=== PATIENT | female | born 1970 | race Caucasian/White ===

== ENCOUNTER 2019-06-29 09:51 | Outpatient (CLI) | payer OTHER, SELFPAY ==
--- NOTE | ~2019-06-29 | CT_ITS ---
EXAMINATION: CT abdomen pelvis wo/w con DATE: 06/29/2019 10:31 INDICATION: Microscopic hematuria. Left flank pain. TECHNIQUE: Computed tomography (CT) of the abdomen and pelvis was performed without intravenous contr ast. The dose-length product was 2065.15 mGy-cm. Automated exposure control and iterative reconstruct ion technique were employed. COMPARISON: No prior studies for comparison. FINDINGS: Lung bases are unremarkable. There is a laparoscopic adjustable gastric band. No significan t pleural or pericardial effusion. No significant vascular abnormality. No lymphadenopathy. No renal/ureteral stones or hydronephrosis. Ureters are normal in course and caliber. No focal renal mass identified. The liver, spleen, pancreas, right adrenal gland are unremarkable. Left adrenal gland not identified, possibly surgically absent. Gallbladder is present. No free air or free fluid. Bowel pattern is nono bstructive. No lymphadenopathy. No acute osseous abnormality. IMPRESSION: 1. No acute abnormality. No findings to account for hematuria. Reviewed, dictated and finalized at location A.
[2019-06-29 10:07] LABS: Estimated Glomerular Filt Rate > 60
== END 2019-06-29 09:52 ==
PROVIDERS: PCP Physician Assistant; Visit Provider Physician Assistant
DX: R31.21 Asymptomatic microscopic hematuria (principal)
CPT/HCPCS: 36415; 74178; Q9967

== ENCOUNTER 2020-08-31 16:38 | Outpatient (CLI) | payer OTHER, SELFPAY ==
--- NOTE | ~2020-08-31 | XR_ITS ---
EXAMINATION: XR chest 2V EXAM DATE: 08/31/2020 16:54 INDICATION: Shortness of breath for one month with exertion. Hypertension. Flank pain. TECHNIQUE: Frontal and lateral projections of the chest obtained and reviewed. Comparison is made to prior examination from 04/17/2014. FINDINGS: The lungs are clear. There are no pleural effusions. The cardiomediastinal silhouette is within normal limits. There is no pneumothorax suspected. The bones and soft tissues are unremarkab le. Gastric banding device. IMPRESSION: Unremarkable chest x-ray exam. Reviewed, dictated and finalized at location A.
== END 2020-08-31 16:39 ==
PROVIDERS: Visit Provider Internal Medicine Cardiovascular Disease
DX: R10.9 Unspecified abdominal pain (principal); I10 Essential (primary) hypertension; E66.9 Obesity, unspecified; E03.9 Hypothyroidism, unspecified; D64.9 Anemia, unspecified; R06.83 Snoring; C73 Malignant neoplasm of thyroid gland; R20.2 Paresthesia of skin; Z82.49 Family history of ischemic heart disease and other diseases of the circulatory system
CPT/HCPCS: 71046

== ENCOUNTER 2020-09-28 09:52 | Outpatient (CLI) | payer OTHER, SELFPAY ==
--- NOTE | 2020-09-28 11:18 | ECG_ITS ---
Measurements Intervals [place] Rate: 70 P: 18 [place]: 153 QRS: 11 QRSD: 90 T: 18 QT: 370 QTc: 402 Interpretive Statements SINUS RHYTHM BASELINE ARTIFACT- I, II, AVR NORMAL ECG Electronically Signed On 09-28-2020 12:32:02 CDT by Romulo Chen D.O.
[2020-09-28 12:23] LABS: Alanine Aminotransferase 13 U/L (4-35); Albumin Level 4.1 g/dL (3.5-5.1); Alkaline Phosphatase 68 U/L (38-126); Anion Gap 7 mmol/L (8-16); Aspartate Amino Transferase 21 U/L (14-36); Bilirubin,Total 0.4 mg/dL (0.2-1.3); Blood Urea Nitrogen 15 mg/dL (7-17); Calcium 9.8 mg/dL (8.4-10.2); Carbon Dioxide 29 mmol/L (22-30); Chloride 105 mmol/L (98-107); Estimated Glomerular Filt Rate > 60; Glucose 85 mg/dL (65-105); Potassium 3.9 mmol/L (3.4-5.0); Sodium 141 mmol/L (137-145)
== END 2020-09-28 09:53 | disposition home or self-care (01) ==
LOC: ANHSURGERY 09:53
PROVIDERS: Obstetrics & Gynecology; PCP Physician Assistant; Visit Provider Urology
DX: N39.3 Stress incontinence (female) (male) (principal); I10 Essential (primary) hypertension; N92.0 Excessive and frequent menstruation with regular cycle; Z01.818 Encounter for other preprocedural examination
CPT/HCPCS: 36415; 80053; 86850; 86900; 86901; 87086; 93005

== ENCOUNTER → 2020-10-05 04:37 | Outpatient (CLI) | payer OTHER, SELFPAY ==
[2020-10-05 18:47] LABS: SARS-CoV-2 RNA PCR Negative
== END ==
PROVIDERS: Visit Provider Urology
DX: Z01.812 Encounter for preprocedural laboratory examination (principal); Z20.822 Contact with and (suspected) exposure to COVID-19
CPT/HCPCS: C9803; U0003; U0005

== ENCOUNTER 2020-10-08 00:53 | Day surgery (SDC) | payer OTHER, SELFPAY ==
[2020-09-28 10:17] VITALS: BP 137/63; PULSE 78; RESP 16; TEMP 37; O2SAT 97
[2020-09-28 10:58] VITALS: BMI 39.1
--- NOTE | 2020-10-05 08:38 | P.HP_ITS ---
H&P: HPI History of Present Illness Date/Time: 10/05/20 08:38 a 49-year-old female who like her stress incontinence corrected concomitantly with a hysterectomy for dysfunctional uterine bleeding Chief Complaint: stress incontinence Review of Systems Review of Systems: All systems reviewed & are unremarkable except as noted in HPI and below PMFSH Past Medical History Medical History (Updated 10/05/20 @ 08:39 by Malcolm Yancey MD) Abnormal uterine bleeding Gastroesophageal reflux disease HTN (hypertension) Hypercholesterolemia Obesity Thyroid cancer Family History Family History (Updated 12/15/13 @ 07:13 by DOCTOR UNKNOWN) Father Hypertension Other Diabetes mellitus Family history of malignant neoplasm of male breast Social History Social History Smoking packs per day: 1 Smoking cigarettes per day: 20.0 Years smoked: 15 Smoking pack-years: 15.00 Smoking status: Former smoker Tobacco type: cigarettes Smoking end date: 10/19/99 Alcohol intake: current Substance use: never Additional living arrangements comments: [facility] Spiritual care concerns: No Meds Home Medications and Allergies Home Medications Medication Instructions Recorded Confirmed Type atorvastatin 40 mg PO HS 03/30/19 09/28/20 History phentermine 30 mg PO DAILY 03/30/19 09/28/20 History calcium and magnesium carbonat 1 tablet PO DAILY 09/28/20 09/28/20 History cholecalciferol (vitamin D3) 125 mcg PO DAILY 09/28/20 09/28/20 History citalopram 20 mg PO QACLUNCH 09/28/20 09/28/20 History cyanocobalamin (vitamin B-12) 1,000 mcg PO DAILY 09/28/20 09/28/20 History levothyroxine 25 mcg PO DAILY 09/28/20 09/28/20 History levothyroxine 200 mcg PO QAM 09/28/20 09/28/20 History lejbhhrhaiqe-Hp-uuae-minerals 1 tablet PO DAILY 09/28/20 09/28/20 History [Multiple Vitamin, Womens] omeprazole 40 mg PO QACLUNCH 09/28/20 09/28/20 History triamterene-hydrochlorothiazid 1 cap PO QACLUNCH 09/28/20 09/28/20 History Allergies Allergy/AdvReac Type Severity Reaction Status Date / Time No Known Allergies Allergy Unverified 09/28/20 10:03 Exam Const: General: cooperative and healthy appearing HENMT: Head: normal to inspection Face and sinus: normal facial exam Eyes: General: appearance normal, both eyes and all related structures Resp: Effort & Inspection: normal respiratory effort and able to speak in c omplete sentences Back/Spine/Pelvis: Back: no CVA tenderness Skin: General skin exam: normal color Assessment and Plan Assessment and plan (1) IAIN (stress urinary incontinence, female): Code(s): N39.3 - Stress incontinence (female) (male) Status: Acute Assessment and Plan: urethral sling
[2020-10-08] VITALS (8 sets, daily range): BP systolic 119–151; BP diastolic 67–87; PULSE 71–110; RESP 15–20; TEMP 36.1–37; O2SAT 93–100
--- NOTE | ~2020-10-08 | XR_ITS ---
EXAMINATION: XR retrograde pyelo w/stent BI DATE: 10/08/2020 16:59 INDICATION: Ureteral injury. TECHNIQUE: 6 intraoperative fluoroscopic views of the abdomen and pelvis were obtained. I was not pre sent. Fluoroscopy exposure time was 49 seconds. COMPARISON: CT abdomen and pelvis 06/29/2019 FINDINGS: Retrograde pyelograms demonstrated extravasation of contrast from the distal left ureter. U reteral stents are noted. IMPRESSION: 1. Contrast extravasation from the distal left ureter. 2. Bilateral internal ureteral stent placement. Reviewed, dictated and finalized at location A.
--- NOTE | 2020-10-08 07:17 | WPDHPUPDATE1 ---
History and Physical Update Update Date/Time: 10/08/20 07:17 History and Physical has been reviewed, including an updated exam of the patient. There are NO changes in the patient's condition. Risks, benefits, and alternatives have been discussed and questions answered. Patient agrees to proceed with procedure.
[2020-10-08] MEDS: ACETAMINOPHEN 500 MG TABLET 1000 MG PO (11:12)
[2020-10-08] MEDS: KETOROLAC 15 MG/ML VIAL (*BKC) IV PUSH (11:12)
[2020-10-08] MEDS: LACTATED RINGERS 1,000 ML 30 ML IV CONT ×3 (11:27→19:04)
--- NOTE | 2020-10-08 11:57 | WPDANESEPPF ---
Anes - Initial Pre Proc Eval Procedure: Operation Date: 10/08/20 12:30 Proposed Procedures p Urethral Sling - Malcolm Yancey MD s Laparoscopic Assisted Total Vaginal Hysterectomy With Bilateral Salpingo Oophorectomy - Jessica Sahni MD Date/Time: 10/08/20 11:57 Surgeon: Malcolm Yancey MD Pre Op Diagnosis: stress incontinence, menorrhagia Patient Data Age: 50 Gender: F Height: 1.65 m Weight: 107.6 kg Last Vital Signs Temp 97.7 F 10/08/20 11:35 Pulse 71 10/08/20 11:35 Resp 18 10/08/20 11:35 BP 141/74 H 10/08/20 11:35 Pulse Ox 98 10/08/20 11:35 Allergies Allergy/AdvReac Type Severity Reaction Status Date / Time No Known Allergies Allergy Unverified 09/28/20 10:03 Home Medications Medication Instructions Recorded Confirmed Type atorvastatin 40 mg PO HS 03/30/19 10/08/20 History phentermine 30 mg PO DAILY 03/30/19 10/08/20 History calcium and magnesium carbonat 1 tablet PO DAILY 09/28/20 10/08/20 History cholecalciferol (vitamin D3) 125 mcg PO DAILY 09/28/20 10/08/20 History citalopram 20 mg PO QACLUNCH 09/28/20 10/08/20 History cyanocobalamin (vitamin B-12) 1,000 mcg PO DAILY 09/28/20 10/08/20 History levothyroxine 25 mcg PO DAILY 09/28/20 10/08/20 History levothyroxine 200 mcg PO QAM 09/28/20 10/08/20 History stmmzphwwols-Zd-ohuz-minerals 1 tablet PO DAILY 09/28/20 10/08/20 History [Multiple Vitamin, Womens] omeprazole 40 mg PO QACLUNCH 09/28/20 10/08/20 History triamterene-hydrochlorothiazid 1 cap PO QACLUNCH 09/28/20 10/08/20 History Patient hx anesthesia problems: none Family hx anesthesia problems: none PMFSH Past Medical History Medical History (Updated 10/05/20 @ 08:39 by Malcolm Yancey MD) Abnormal uterine bleeding Gastroesophageal reflux disease HTN (hypertension) Hypercholesterolemia Obesity Thyroid cancer Family History Family History (Updated 12/15/13 @ 07:13 by DOCTOR UNKNOWN) Father Hypertension Other Diabetes mellitus Family history of malignant neoplasm of male breast Social History Social History Smoking packs per day: 1 Smoking cigarettes per day: 20.0 Years smoked: 15 Smoking pack-years: 15.00 Smoking status: Former smoker Tobacco type: cigarettes Smoking end date: 10/19/99 Alcohol intake: current Substance use: never Living arrangements: with family Additional living arrangements comments: [facility] Spiritual care concerns: No Anes - Eval Final PreProcedure Day of Procedure 10/08/20 11:57 Patient weight: morbidly obese Heart: regular rate and rhythm Lungs: clear to auscultation Airway: Mallampati scale class II Neurological: alert and oriented Last oral intake: >/= 8 hours ASA classification: IV Emergent: no Anesthetic plan: proceed Anesthesia type and monitoring: general ETT and standard monitoring Informed Consent: The patient's anesthetic plan and its attendant risks and benefits were discussed with the patient/family/POA. Questions were solicited and answers provided to the satisfaction of the patient/family/POA.
--- NOTE | 2020-10-08 12:19 | WPDHPUPDATE1 ---
History and Physical Update Update Date/Time: 10/08/20 12:19 History and Physical has been reviewed, including an updated exam of the patient. There are NO changes in the patient's condition. Risks, benefits, and alternatives have been discussed and questions answered. Patient agrees to proceed with procedure.
[2020-10-08] MEDS: ceFAZolin 2 GM/D5W 50 ML 2 GM/50 ML BAG IVPB (13:09)
[2020-10-08] MEDS: BUPIVACAINE/EPINEPHRINE 0.25% 10 ML VIAL INFILTRATE (14:09)
--- NOTE | 2020-10-08 15:36 | P.OP_ITS ---
Procedure Note - Detailed Date of Procedure 10/08/20 Pre-op Diagnosis stress incontinence, menorrhagia Post-op Diagnosis same Procedure Performed Total laparoscopic hysterectomy and bilateral salpingo oophorectomy Surgeon Jessica Sahni MD Anesthesia general Indications Pelvic pain, menorrhagia, dysmenorrhea Findings enlarged uterus, normal-appearing ovaries and tubes, normal-appearing vulva vagina and cervix. Description of Procedure This patient was taken to the operating room. She was prepped and draped in the dorsal lithotomy position after induction of general anesthesia. A 5 mm skin incision was made in the left upper quadrant the abdomen. A 5 mm trocar was inserted into the intrauterine cavity under direct visualization of the scope. Pneumoperitoneum was achieved. A left lower quadrant 11 mm incision was made with scalpel. An 11 mm trocar was inserted into the anterior abdominal cavity under direct visualization the scope. A 5 mm infraumbilical incision was made with a scalpel and a 5 mm trocar was inserted the intra-abdominal cavity under direct visualization of the scope. The uterine manipulator and Coke per were placed. This was done with a speculum. The speculum was placed. The cervix was grasped with a tenaculum. The stay sutures were placed at 3 and 9:00 a.m.. The stay sutures of 0 Vicryl were brought through the appropriately sized Gissel cup. The tip of the TASHI ma nipulator was placed in the intrauterine cavity. The cup was slid into place around the cervix and into the fornices. It was locked into place. The sutures were then wrapped around the handle and tied under tension. Bilateral ureteral lysis was performed. This was done from the pelvic brim down to the uterine artery. This was done with careful dissection using sharp and blunt dissection. The infundibulo pelvic ligament was Isolated and cauterized with ligature cautery. This was done just adjacent to the ovary away from the ureter. The para ovarian tissue was cauterized transected with LigaSure cautery. This was done in a bilateral fashion and a stepwise fashion around to the round ligament. In a stepwise fashion along the lateral aspects of the uterus the round ligament and broad ligaments were cauterized and transected down to the level of the uterine arteries. A bladder flap was created in the bladder was moved distally to the end of the cervix and over the Gissel cup. The bilateral uterine arteries were cauterized and transected. Colpotomy was then performed. In a circumferential fashion the vagina was transected using unipolar cautery. The incision was made down on the Gissel. The uterus and cervix were taken out through the vagina. A pneumo occluder was placed in the vagina. The vaginal cuff was closed with a 0 V lock suture. The pelvis was irrigated with copious amounts antibiotic irrigation. The ureters were again examined and found to be intact and flowing freely under the uterine arteries into the bladder. The bladder was intact. It was examined directly. The vagina was irrigated with Betadine solution after removal of the Pneumo occluder. The patient was taken to recovery room. She was stable condition. Sponge lap and needle counts were correct x2. Estimated Blood Loss 250 Drains Yes Packing No Pathology yes Complications No immediate complications Condition stable Disposition floor
--- NOTE | 2020-10-08 16:46 | W.PM.PROC2 ---
Procedure Note - Detailed Date of Procedure 10/08/20 Pre-op Diagnosis stress incontinence, menorrhagia Post-op Diagnosis other (Stress incontinence, left ureteral injury) Procedure Performed Urethral sling, cystoscopy with bilateral retrograde pyelograms, ureteroscopy, bilateral stent placement Surgeon Malcolm Yancey MD Anesthesia general Indications stitch noted in left distal ureter Findings Left ureteral injury which occurred during hysterectomy. Extravasation noted on retrograde pyelogram, The stitch was seen in the left distal ureter. I was able to get a wire beyond the stitch as well as a stent. Description of Procedure I entered the room at the conclusion of her hysterectomy. I re-prepped from a urethral sling. I marked at the thigh incisions. I anesthetized the skin and made those incisions. I then anesthetized the anterior vaginal wall over the mid urethra. I made a 1 cm incision. I dissected out laterally taking great care not to injure the urethra vaginal wall. I passed helical trocars. I did this 1st on the left and then on the right. From the thigh incision towards the vaginal incision. Sling was connected to the trocars and brought out the thigh incision. I tensioned the sling appropriately. I cut and the plastic sheaths. I then closed the incision with 2 Vicryl. I then performed cystoscopy. The bladder was examined. There is some redness noted near the left ureteral orifice. Blood was also seen to be coming from the left ureteral orifice. The right ureteral orifice was normal and seen to excrete clear yellow urine. There is no other abnormalities in the bladder. At this point I was very suspicious there is ureteral injury. I called for the C-arm and repositioned the patient. The meantime I cut the excess sling material close incision with glue. I did a retrograde pyelogram on the left there is extravasation of contrast the left distal ureter but contrast was seen to go up the ureter. I elected to perform ureteroscopy on this side. I got up into the distal ureter. About 2-3 cm up the ureter there was a barbed suture noted in the medial wall of the ureter. I was able to get a guidewire to the upper pole kidney I performed ureteroscopy past this area of suture up to the mid ureter and the ureter was normal. I then placed a 6 [place] variable length stent. Proximal coil was in the upper pole kidney. Distal coil was in the bladder. I then a retrograde pyelogram on the contralateral side. The ureter was delicate and normal without extravasation. To aid the button facing machine operator in the next portion of the procedure I placed an internal-external catheter up to the renal pelvis. I replaced the Pop catheter. I secured the internal external catheter to the Pop catheter. She was turned over to her button facing machine operator for the next portion of the surgery. I recommended removing the barbed suture from the cuff and redoing the cuff. I will leave this stent in place for 2-3 months. Implants Six [place] variable length stent Estimated Blood Loss 30 Drains Yes (Left internal double-J stent. Right internal-external stent. Pop ) Packing No Pathology none sent Complications Other complications (Left ureteral injury noted) Condition stable Disposition PACU
[2020-10-08] MEDS: fentaNYL CITRATE INJ (*CRX) 100 MCG/2 ML VIAL 25 MCG IV PUSH ×4 (18:58→19:12)
[2020-10-08] MEDS: DEXTROSE 5%/0.45% SOD CHL 1,000 ML 125 ML IV CONT (20:30)
[2020-10-08] MEDS: KETOROLAC 30 MG/ML VIAL (*BKC) IV PUSH (20:32)
[2020-10-08] MEDS: ATORVASTATIN 40 MG TABLET PO (20:36)
[2020-10-08] MEDS: HYDROcodone/acetaminophen (*CRX) 10-325 MG TABLET 1 TAB PO (20:36)
[2020-10-08] MEDS: OXYBUTYNIN CHLORIDE 5 MG TABLET PO (20:36)
[2020-10-09] MEDS: HYDROcodone/acetaminophen (*CRX) 10-325 MG TABLET 1 TAB PO ×2 (01:36→04:16)
[2020-10-09] MEDS: OXYBUTYNIN CHLORIDE 5 MG TABLET PO ×2 (04:16→09:16)
[2020-10-09] MEDS: IBUPROFEN 600 MG TABLET PO (04:16)
[2020-10-09 04:20] VITALS: BP 128/71; PULSE 81; RESP 16; TEMP 36.7; O2SAT 100
[2020-10-09 08:00] VITALS: BP 112/63; BP 118/63; PULSE 88; RESP 18; TEMP 36.9
--- NOTE | 2020-10-09 08:54 | WPDANESPN ---
Anes - Prog Note Post-Op Date/Time: 10/09/20 08:54 Cardiovascular status: normal Respiratory status: normal Airway patency: baseline Mental status: baseline Post-Op hydration status: normal Vital Signs: Last Vital Signs Temp 36.7 C 10/09/20 04:20 Pulse 81 10/09/20 04:20 Resp 16 10/09/20 04:20 BP 128/71 10/09/20 04:20 Pulse Ox 100 10/09/20 04:20 Pain Score (VAS): 4 I/O: Intake & Output 10/08/20 10/09/20 10/09/20 23:59 07:59 15:59 Intake Total 300 1400 Output Total 480 1000 Balance -180 400 Post-procedural complaints: none Patient Feedback: Patient satisfied with anesthetic care.
[2020-10-09] MEDS: HYDROcodone/acetaminophen (*CRX) 5-325 MG TABLET 1 TAB PO (09:13)
[2020-10-09] MEDS: CHOLECALCIFEROL 1,000 UNITS TABLET 5000 UNITS PO (09:14)
[2020-10-09] MEDS: THERAPEUTIC MULTIVITAMINS/MINERALS TAB (*BKC) 1 TABLET PO (09:15)
[2020-10-09] MEDS: LEVOTHYROXINE SODIUM 100 MCG TABLET 200 MCG PO (09:15)
[2020-10-09] MEDS: CYANOCOBALAMIN 1,000 MCG TABLET 1000 MCG PO (09:17)
--- NOTE | 2020-10-09 09:52 | PM.GYNPNOP ---
CENTRAL OFFICE INSPECTOR - A/P Postoperative Procedures: Procedures Operation Date: 10/08/20 12:30 Actual Procedure Side Surgeon p Urethral Sling, Left Ureteroscopy, Left Ureteral Stent Placement, Left Retrograde Pyelogram Left MD elaine Jacobs Laparoscopic Assisted Total Vaginal Hysterectomy With Bilateral Salpingo Oophorectomy Bilateral Jessica Sahni MD ureteral injury, vaginal cuff suture placed through the ureter, suture was removed. and replaced, has stent and the patient is comfortable Postoperative day: 1 Postoperative status: doing well and other (Tollerating Regular Diet) Postoperative plan: routine post-op care and discharge Time Spent With Patient Time: Total time spent is greater than 50% in coordination of care (as documented) at patient's floor/unit and/or counseling patient: Time with patient: 15 - 25 minutes CENTRAL OFFICE INSPECTOR- PN:Subj Post-Op Subjective Date/time seen: 10/09/20 09:52 Subjective: patient reports feeling better, pain is well controlled and patient is tolerating oral intake Exam Const: General: cooperative, healthy appearing, comfortable and no acute distress Resp: Auscultation: no crackles, no rales, no rhonchi and no wheezes Cardio: Rhythm: regular rhythm Heart sounds: no click and no murmurs GI: Inspection: non-distended Auscultation: normal bowel sounds Other: Incisions - CDI Extrem: General: normal to inspection, no pedal edema and no calf tenderness CENTRAL OFFICE INSPECTOR - PN: Obj Data Vital Signs Vital Signs: Vital Signs - 24 hr 10/08/20 11:35 10/08/20 18:25 10/08/20 18:40 Temperature 97.7 F 97.0 F L Pulse Rate 71 109 H 106 H Respiratory Rate 18 18 17 Blood Pressure 141/74 H 119/70 124/80 Pulse Oximetry 98 98 100 10/08/20 18:55 10/08/20 19:10 10/08/20 19:25 Temperature Pulse Rate 97 104 H 104 H Respiratory Rate 16 15 16 Blood Pressure 127/67 122/76 132/76 Pulse Oximetry 93 93 100 10/08/20 20:23 10/08/20 23:20 10/09/20 04:20 Temperature 98.6 F 98.4 F 98.1 F Pulse Rate 110 H 109 H 81 Respiratory Rate 20 16 16 Blood Pressure 144/87 H 151/82 H 128/71 Pulse Oximetry 100 100 Intake/Output Intake/Output: Intake & Output 10/06/20 10/07/20 10/08/20 10/09/20 23:59 23:59 23:59 23:59 Intake Total 1050 1400 Output Total 480 1000 Balance 570 400 Meds/Results Medications: Active Medications Generic Name Dose Route Start Last Admin Trade Name Freq PRN Reason Stop Dose Admin Hydrocodone Bitart/Acetaminophen 1 tab 10/08/20 19:31 10/09/20 09:13 Hydrocodone/Acetaminophen (*Crx) 5-325 Mg Tablet PO 1 tab Q3H PRN Administration Pain Rated 5 or Less Hydrocodone Bitart/Acetaminophen 1 tab 10/08/20 19:31 10/09/20 04:16 Hydrocodone/Acetaminophen (*Crx) 10-325 Mg Tablet PO 1 tab Q3H PRN Administration Pain Rated 6 or Greater Atorvastatin Calcium 40 mg 10/08/20 21:00 10/08/20 20:36 Atorvastatin 40 Mg Tablet PO 40 mg HS MISBAH Administration Citalopram Hydrobromide 20 mg 10/09/20 12:00 Citalopram Hydrobromide 20 Mg Tablet PO DAILY@1200 MISBAH Cyanocobalamin 1,000 mcg 10/09/20 09:00 10/09/20 09:17 Cyanocobalamin 1,000 Mcg Tablet PO 1,000 mcg DAILY MISBAH Administration Dextrose/Sodium Chloride 1,000 mls @ 125 mls/hr 10/08/20 19:31 10/09/20 04:31 Dextrose 5% Sodium Chloride 0.45% IV CONT Infused .Q8H MISBAH Infusion Ibuprofen 600 mg 10/08/20 19:31 10/09/20 04:16 Ibuprofen 600 Mg Tablet PO 600 mg Q6H PRN Administration Cramping Ketorolac Tromethamine 30 mg 10/08/20 19:31 10/08/20 20:32 Ketorolac 30 Mg/Ml Vial (*Bkc) IV PUSH 10/13/20 19:32 30 mg Q6H PRN Administration Pain Rated 4-6 Levothyroxine Sodium 25 mcg 10/09/20 09:00 Levothyroxine Sodium 25 Mcg Tablet PO DAILY MISBAH Levothyroxine Sodium 200 mcg 10/09/20 06:30 10/09/20 09:15 Levothyroxine Sodium 100 Mcg Tablet PO 200 mcg DAILY@0630 MISBAH Administration Multivitamins/Calcium 1 tablet 10/09/20 09:00 10/09/20 09:15 Therapeut
--- NOTE | 2020-10-09 11:31 | PC.NURSE ---
Discharge instructions given per Dr. Aguirre orders. Pt. verbalized understanding. No questions or concerns voiced. Very pleasant and cooperative. at side.
--- NOTE | 2020-10-09 12:06 | WPDUROPN2 ---
Progress Note: A&P Assessment and Plan (1) Intraoperative ureteral injury: Code(s): N99.81 - Other intraoperative complications of genitourinary system Status: Acute Assessment and Plan: Patient to follow up in 2 months for stent removal bilaterally. Ok to discharge home at anytime with Oxybutynin TID 5mg for stent irritation. (2) IAIN (stress urinary incontinence, female): Code(s): N39.3 - Stress incontinence (female) (male) Status: Acute Assessment and Plan: Plan to follow up in [address] Yancey. Call for any questions regarding urination, she is aware of cloudy, bloody urine with the stents and that it is normal. She will be on pelvic rest for 4 weeks and was instructed to not submerge into water for 4 weeks to let her vaginal incision heal. Call if you develop a fever, difficulty urinating or signs and symptom of infection. Subjective Subjective Date/Time Seen: 10/09/20 12:06 POD #1 Cystoscopy, urethral sling, bilateral retrograde pyelogram and bilateral stent placement with bilateral ureteroscopy. Patient is doing well, sitting up in the chair in her clothes and ready for discharge. She does c/o mild stent discomfort and pink urine. She understands the purpose of the stents. She is urinating well otherwise. Review of Systems Cardiovascular: Cardiovascular: Denies chest pain Respiratory: Respiratory: Reports no additional respiratory complaints Gastrointestinal: Gastrointestinal: Reports abdominal pain, Denies nausea and Denies vomiting Genitourinary: Genitourinary: Reports hematuria, Reports dysuria, Denies pelvic pain, Reports flank pain and Denies urinary urgency Exam Resp: Effort & Inspection: normal respiratory effort Cardio: Rate: regular rate GI: GI Palp: Yes Soft to palpation and Yes Tenderness to palpation present (GI) : General: Yes no CVA tenderness Extrem: General: no edema Objective Data Vital Signs Vital Signs: Vital Signs - 24 hr 10/08/20 18:25 10/08/20 18:40 10/08/20 18:55 Temperature 97.0 F L Pulse Rate 109 H 106 H 97 Respiratory Rate 18 17 16 Blood Pressure 119/70 124/80 127/67 Pulse Oximetry 98 100 93 10/08/20 19:10 10/08/20 19:25 10/08/20 20:23 Temperature 98.6 F Pulse Rate 104 H 104 H 110 H Respiratory Rate 15 16 20 Blood Pressure 122/76 132/76 144/87 H Pulse Oximetry 93 100 100 10/08/20 23:20 10/09/20 04:20 10/09/20 08:00 Temperature 98.4 F 98.1 F 98.4 F Pulse Rate 109 H 81 88 Respiratory Rate 16 16 18 Blood Pressure 151/82 H 128/71 118/63 Pulse Oximetry 100 Intake/Output Intake/Output: Intake & Output 10/06/20 10/07/20 10/08/20 10/09/20 23:59 23:59 23:59 23:59 Intake Total 1050 2200 Output Total 480 2250 Balance 570 -50 Meds/Results Medications: Active Medications Generic Name Dose Route Start Last Admin Trade Name Freq PRN Reason Stop Dose Admin Hydrocodone Bitart/Acetaminophen 1 tab 10/08/20 19:31 10/09/20 09:13 Hydrocodone/Acetaminophen (*Crx) 5-325 Mg Tablet PO 1 tab Q3H PRN Administration Pain Rated 5 or Less Hydrocodone Bitart/Acetaminophen 1 tab 10/08/20 19:31 10/09/20 04:16 Hydrocodone/Acetaminophen (*Crx) 10-325 Mg Tablet PO 1 tab Q3H PRN Administration Pain Rated 6 or Greater Atorvastatin Calcium 40 mg 10/08/20 21:00 10/08/20 20:36 Atorvastatin 40 Mg Tablet PO 40 mg HS MISBAH Administration Citalopram Hydrobromide 20 mg 10/09/20 12:00 Citalopram Hydrobromide 20 Mg Tablet PO DAILY@1200 MISBAH Cyanocobalamin 1,000 mcg 10/09/20 09:00 10/09/20 09:17 Cyanocobalamin 1,000 Mcg Tablet PO 1,000 mcg DAILY MISBAH Administration Dextrose/Sodium Chloride 1,000 mls @ 125 mls/hr 10/08/20 19:31 10/09/20 04:31 Dextrose 5% Sodium Chloride 0.45% IV CONT Infused .Q8H MISBAH Infusion Ibuprofen 600 mg 10/08/20 19:31 10/09/20 04:16 Ibuprofen 600 Mg Tablet PO 600 mg Q6H PRN Administration Cramping Ketorolac Tro
== END 2020-10-09 12:17 | disposition home or self-care (01) ==
LOC: ANHSURGERY 10:29 → ANHOB2 19:34
PROVIDERS: Obstetrics & Gynecology; PCP Physician Assistant; Visit Provider Urology
PROC: (CPT 52332; principal; 2020-10-08 12:30)
PROC: 0UT9FZZ Resection of Uterus, Via Natural or Artificial Opening With Percutaneous Endoscopic Assistance (ICD-10-PCS; CPT 58571; 2020-10-08 12:30)
DX: N92.0 Excessive and frequent menstruation with regular cycle (principal); N39.3 Stress incontinence (female) (male); N99.71 Accidental puncture and laceration of a genitourinary system organ or structure during a genitourinary system procedure; R10.2 Pelvic and perineal pain; N94.6 Dysmenorrhea, unspecified; Y65.8 Other specified misadventures during surgical and medical care; D25.1 Intramural leiomyoma of uterus; N80.0 Endometriosis of uterus; N83.8 Other noninflammatory disorders of ovary, fallopian tube and broad ligament; N88.8 Other specified noninflammatory disorders of cervix uteri; N83.02 Follicular cyst of left ovary; N83.01 Follicular cyst of right ovary; N73.6 Female pelvic peritoneal adhesions (postinfective); I10 Essential (primary) hypertension; E78.00 Pure hypercholesterolemia, unspecified; K21.9 Gastro-esophageal reflux disease without esophagitis; Z85.850 Personal history of malignant neoplasm of thyroid; Z87.891 Personal history of nicotine dependence
CPT/HCPCS: 52332; 58571; 57288; 36415; 74420; 80053; 86850; 86900; 86901; 87086; 88307; 93005; 99199; A9270; C1758; C1769; C1771; C2617; C9803; J0690; J1100; J1170; J1885; J2250; J2370; J2405; J2704; J3010; J7120; Q9966; U0003; U0005

== ENCOUNTER → 2020-12-04 17:23 | Outpatient (CLI) | payer OTHER, SELFPAY ==
--- NOTE | ~2020-12-04 | MM_ITS ---
EXAMINATION: MM screening [facility] BI w anabell HISTORY: Screening mammogram TECHNIQUE: Craniocaudal and mediolateral oblique 3-D tomosynthesis images were obtained and synthetic 2-D images were generated. CAD analysis was submitted and interpreted. COMPARISON: 08/08/2017, 08/05/2016, 07/04/2015 BREAST PARENCHYMAL COMPOSITION: There are scattered areas of fibroglandular density. FINDINGS: There is no evidence of suspicious mass, calcification, or architectural distortion to sugg est malignancy in either breast. There has been no suspicious interval change. IMPRESSION: 1. No mammographic evidence of malignancy. 2. Recommend routine screening mammography in one year. BI-RADS Category 1: Negative Reviewed, dictated and finalized at location A.
== END ==
PROVIDERS: Visit Provider Obstetrics & Gynecology
DX: Z12.31 Encounter for screening mammogram for malignant neoplasm of breast (principal)
CPT/HCPCS: 77063; 77067

== ENCOUNTER 2021-02-11 16:54 | Outpatient (CLI) | payer OTHER, SELFPAY ==
--- NOTE | ~2021-02-11 | XR_ITS ---
XR knee LT 3V 02/11/2021 17:34 Indication: Left knee pain Procedure: 3 views left knee Comparison: No prior studies for comparison. Findings: There is mild-moderate tricompartment osteoarthritis, most advanced in the patellofemoral j oint. No fracture or traumatic malalignment. No significant joint effusion. Impression: 1: Mild-moderate osteoarthritis of the left knee. Reviewed, dictated and finalized at location A. Impression: 1: Mild-moderate osteoarthritis of the left knee.
--- NOTE | ~2021-02-11 | US_ITS ---
EXAMINATION:US venous doppler LE LT INDICATION:Left leg pain TECHNIQUE: Multiple grayscale, color flow and Doppler images of the left lower extremity deep venous systems were obtained and reviewed. COMPARISON:No prior studies for comparison. FINDINGS: The common femoral, superficial femoral and popliteal veins demonstrate normal respiratory variation, augmentation and compressibility. Color flow is also seen within the posterior tibial, pe roneal, greater saphenous and profunda veins. IMPRESSION: 1: No lower extremity deep venous thrombosis. Reviewed, dictated and finalized at location A.
== END 2021-02-11 16:55 | disposition home or self-care (01) ==
LOC: ANHIMG 16:57
PROVIDERS: PCP Physician Assistant; Visit Provider Physician Assistant
DX: M79.605 Pain in left leg (principal); M17.12 Unilateral primary osteoarthritis, left knee
CPT/HCPCS: 73562; 93971

== ENCOUNTER → 2021-04-06 07:37 | Outpatient (CLI) | payer OTHER, SELFPAY ==
--- NOTE | ~2021-04-06 | XR_ITS ---
XR cervical spine 4-5V 04/06/2021 10:07 Indication: Upper extremity paresthesias Procedure: 4 view cervical spine Comparison: 05/16/2017 Findings: There is mild degenerative disc disease at C5-6 and C6-7. There is mild uncinate degenerati ve changes at these levels. No fracture, subluxation or spondylolisthesis. No prevertebral soft tissu e swelling. Odontoid process within normal limits. Lung apices are unremarkable. Impression: 1: Mild cervical spondylosis. Reviewed, dictated and finalized at location A. AR PATHOLOGIST Impression: 1: Mild cervical spondylosis.
--- NOTE | ~2021-04-06 | XR_ITS ---
XR shoulder LT min 2V 04/06/2021 10:07 Indication: Left shoulder pain Procedure: 4 views left shoulder Comparison: 09/28/2004 Findings: No fracture, subluxation or dislocation. No significant joint space narrowing. There is sudhakar tomic alignment. Surrounding osseous structures and soft tissues within normal limits. Impression: 1: No significant bone or joint abnormality. Reviewed, dictated and finalized at location A. AVER Impression: 1: No significant bone or joint abnormality.
== END ==
PROVIDERS: PCP Physician Assistant; Visit Provider Physician Assistant
DX: R20.2 Paresthesia of skin (principal); M25.512 Pain in left shoulder; M47.812 Spondylosis without myelopathy or radiculopathy, cervical region
CPT/HCPCS: 72050; 73030

== ENCOUNTER → 2021-04-30 00:59 | Outpatient (CLI) | payer OTHER, SELFPAY ==
[2021-04-30 21:02] LABS: SARS-CoV-2 RNA PCR Negative
== END ==
PROVIDERS: PCP Physician Assistant; Visit Provider Physician Assistant
DX: R05.1 Acute cough (principal); Z20.822 Contact with and (suspected) exposure to COVID-19
CPT/HCPCS: C9803; U0003; U0005

== ENCOUNTER 2021-05-29 09:23 | Outpatient (CLI) | payer OTHER, SELFPAY ==
--- NOTE | 2021-05-29 11:00 | NEURO_ITS ---
Impression: # Complains of numbness and pain of hands. # Moderate right Carpal Tunnel Syndrome. # Severe left Carpal Tunnel Syndrome. # No ulnar neuropathy. Nerve Conduction Studies Anti Sensory Summary Table Stim Site NR Peak (ms) P-T Amp (?V) Site1 Site2 Delta-P (ms) Dist (cm) Melvin (m/s) Left Median Anti Sensory (2-3nd Digit) Wrist 5.7 10.3 Wrist 2-3nd Digit 5.7 14.0 25 Wrist 5.8 19.6 Wrist 2-3nd Digit 5.7 14.0 25 Right Median Anti Sensory (2-3nd Digit) Wrist 4.5 18.1 Wrist 2-3nd Digit 4.5 14.0 31 Wrist 4.4 10.3 Wrist 2-3nd Digit 4.5 14.0 31 Left Radial Anti Sensory (Base 1st Digit) Wrist 2.0 24.8 Wrist Base 1st Digit 2.0 0.0 Right Radial Anti Sensory (Base 1st Digit) Wrist 2.2 21.0 Wrist Base 1st Digit 2.2 0.0 Left Ulnar Anti Sensory (5th Digit) Wrist 2.2 84.4 Wrist 5th Digit 2.2 14.0 64 Right Ulnar Anti Sensory (5th Digit) Wrist 2.2 60.6 Wrist 5th Digit 2.2 14.0 64 Motor Summary Table Stim Site NR Onset (ms) O-P Amp (mV) Site1 Site2 Delta-0 (ms) Dist (cm) Melvin (m/s) Left Median Motor (Abd Poll Brev) Wrist 6.6 2.2 Elbow Wrist 4.7 26.0 55 Elbow 11.3 2.5 Right Median Motor (Abd Poll Brev) Wrist 5.2 3.2 Elbow Wrist 5.7 28.0 49 Elbow 10.9 2.9 Left Ulnar Motor (Abd Dig Minimi) Wrist 2.1 7.0 A Elbow Wrist 5.2 31.0 60 A Elbow 7.3 6.0 Right Ulnar Motor (Abd Dig Minimi) Wrist 2.7 5.5 A Elbow Wrist 5.0 30.0 60 A Elbow 7.7 4.0 F Wave Studies NR F-Lat (ms) L-R F-Lat (ms) Left Median (Mrkrs) (Abd Poll Brev) 30.88 0.82 Right Median (Mrkrs) (Abd Poll Brev) 30.06 0.82 Left Ulnar (Mrkrs) (Abd Dig Min) 28.44 0.01 Right Ulnar (Mrkrs) (Abd Dig Min) 28.44 0.01 EMG Side Muscle Nerve Root Ins Act Fibs Amp Dur Recrt Comment Right 1stDorInt Ulnar C8-T1 Nml Nml Nml Nml Nml Right Ext Indicis Radial (Post Int) C7-8 Nml Nml Nml Nml Nml Right Ext Digitorum Radial (Post Int) C7-8 Nml Nml Nml Nml Nml Right BrachioRad Radial C5-6 Nml Nml Nml Nml Nml Right PronatorTeres Median C6-7 Nml Nml Nml Nml Nml Right Abd Poll Brev Median C8-T1 Nml Nml Decr >12ms Reduced Left 1stDorInt Ulnar C8-T1 Nml Nml Nml Nml Nml Left Ext Indicis Radial (Post Int) C7-8 Nml Nml Nml Nml Nml Left Ext Digitorum Radial (Post Int) C7-8 Nml Nml Nml Nml Nml Left BrachioRad Radial C5-6 Nml Nml Nml Nml Nml Left PronatorTeres Median C6-7 Nml Nml Nml Nml Nml Left Abd Poll Brev Median C8-T1 Nml Nml Nml Nml Nml Right ABD Dig Min Ulnar C8-T1 Nml Nml Nml Nml Nml Left ABD Dig Min Ulnar C8-T1 Nml Nml Nml Nml Nml MTDD
== END 2021-05-29 09:24 | disposition home or self-care (01) ==
PROVIDERS: PCP Physician Assistant; Visit Provider Physician Assistant
DX: R20.2 Paresthesia of skin (principal); G56.03 Carpal tunnel syndrome, bilateral upper limbs
CPT/HCPCS: 95886; 95911

== ENCOUNTER → 2022-05-31 08:40 | Outpatient (CLI) | payer OTHER, SELFPAY ==
--- NOTE | ~2022-05-31 | US_ITS ---
US right upper quadrant DATE: 05/31/2022 09:10 INDICATION: Right upper quadrant abdominal pain TECHNIQUE: Real-time imaging of liver, pancreas, gallbladder COMPARISON: 06/29/2019 CT abdomen pelvis FINDINGS: No hepatic or pancreatic space-occupying mass lesion is detected. Normal hepatopedal portal venous flow direction. No gallstones or gallbladder wall thickening. Negative sonographic Marcelo's sign. The common bile alexia t measures approximately 3 mm, normal. IMPRESSION: Negative Reviewed, dictated and finalized at Location A. Reviewed, dictated and finalized at location A. H TECHNICIAN IMPRESSION: Negative
== END ==
PROVIDERS: PCP Physician Assistant; Visit Provider Physician Assistant
DX: R22.32 Localized swelling, mass and lump, left upper limb (principal); R10.11 Right upper quadrant pain
CPT/HCPCS: 76705

== ENCOUNTER 2022-06-07 09:33 | Emergency (ER) | payer OTHER, SELFPAY ==
--- NOTE | 2022-06-07 09:47 | ED.URI ---
HPI - URI/Sore Throat General Chief Complaint: Upper Respiratory Infection Stated Complaint: bilateral eye irritation,sorethroat Time Seen by Provider: 06/07/22 09:55 Source: patient Mode of arrival: ambulatory Limitations: no limitations History of Present Illness HPI Narrative: Ran is a 51-year-old female patient presenting to the clinic today with complaints of bilateral eye irritation, body aches, chills, fever, congestion, and sore throat 5 days.. She reports that she did take a at home COVID test yesterday and was negative. She contacted her PCP-sent in prescription for moxifloxacin for her eyes and suspected she had conjunctivitis. She reports that the eyes are very red and itchy and irritated. She has been prying her eyes open as they have been matting shut with yellow discharge. MD elicited complaint: sore throat, nasal congestion and other (Eye irritation) Related Data Home Medications Medication Instructions Recorded Confirmed atorvastatin 40 mg tablet 40 mg PO HS 03/30/19 06/07/22 citalopram 20 mg tablet 20 mg PO QACLUNCH 09/28/20 06/07/22 levothyroxine 200 mcg tablet 200 mcg PO QAM 09/28/20 06/07/22 levothyroxine 25 mcg tablet 25 mcg PO DAILY 09/28/20 06/07/22 omeprazole 40 mg capsule,delayed 40 mg PO QACLUNCH 09/28/20 06/07/22 release Allergies Allergy/AdvReac Type Severity Reaction Status Date / Time No Known Allergies Allergy Verified 06/07/22 09:57 Review of Systems Review of Systems: Pertinent positives per HPI. Patient denies any fever, chills, rash, headache, visual changes, dizziness, cough, shortness of breath, chest pain, palpitations, nausea, vomiting, diarrhea, constipation, abdominal pain, or any urinary issues. [facility] Past Medical History Medical History (Updated 06/07/22 @ 09:59 by Jeffry Fuentes, NYDIA) Abnormal uterine bleeding Gastroesophageal reflux disease HTN (hypertension) Hypercholesterolemia Obesity Thyroid cancer Family History Family History (Updated 12/15/13 @ 07:13 by DOCTOR UNKNOWN) Father Hypertension Other Diabetes mellitus Family history of malignant neoplasm of male breast Social History Social History Smoking packs per day: 1 Smoking cigarettes per day: 20.0 Years smoked: 15 Smoking pack-years: 15.00 Smoking status: Former smoker Tobacco type: cigarettes Smoking end date: 10/19/99 Alcohol intake: current Substance use: never Living arrangements: with family Additional living arrangements comments: [facility] Spiritual care concerns: No Comments At the time of my signature, I reviewed and agree with the nursing past medical, surgical, social, and family history. There is no relevant family history pertinent to the patient complaint. Exam Narrative: General: Well-developed, well nourished, in no apparent distress Head: Normocephalic, atraumatic Eyes: Pupils equally round and reactive to light bilaterally, EOM intact, sclera and conjunctive clear, no discharge, lids normal Ears: TMs intact and clear, ear canals clear, no drainage, grossly hearing normal. Nose: Nares patent, no discharge, no inflammation, no sinus tenderness. Mouth: Oral pharynx without lesions or masses, good dentition, MMM. Neck: Supple, trachea midline, no enlargement of anterior or posterior cervical nodes, no thyroid masses or goiter palpable. Cardio: Regular rate and rhythm, s1 and s2 normal, no murmur appreciated. Resp: Clear to auscultation bilaterally, no rhonchi, rales, wheezing or rubs Course Course Emergency Course: Portions of this record may have been created with voice recognition software. Level of Care: Express Care Visit Vital Signs Vital signs: Vital Signs Temperature 36.8 C 06/07/22 09:53 Pulse Rate 83 06/07/22 09:53 Respiratory Rate 18 06/07/22 09:53 Blood Pressure 152/93 H 06/07/22 09:53 Pulse Oximetry 98 06/07/22 09:53 Oxygen Delivery Room Air 06/07/22 09:53 [place]
[2022-06-07 09:53] VITALS: BP 152/93; PULSE 83; RESP 18; TEMP 36.8; O2SAT 98
== END 2022-06-07 10:39 | disposition home or self-care (01) ==
PROVIDERS: Emergency Provider Nurse Practitioner Family; PCP Physician Assistant
DX: B34.9 Viral infection, unspecified (principal); B30.9 Viral conjunctivitis, unspecified; J02.9 Acute pharyngitis, unspecified; Z20.822 Contact with and (suspected) exposure to COVID-19; Z87.891 Personal history of nicotine dependence; K21.9 Gastro-esophageal reflux disease without esophagitis; I10 Essential (primary) hypertension; E78.00 Pure hypercholesterolemia, unspecified; E66.9 Obesity, unspecified; Z68.38 Body mass index [BMI] 38.0-38.9, adult; Z85.850 Personal history of malignant neoplasm of thyroid
CPT/HCPCS: 87081; 87426; 87880; 99213; C9803; G0463

== ENCOUNTER 2022-07-21 10:45 | Outpatient (CLI) | payer OTHER, SELFPAY ==
--- NOTE | ~2022-07-21 | MR_ITS ---
EXAMINATION: MR humerus LT wo/w con DATE: 07/21/2022 11:47 INDICATION: Soft tissue mass at the left upper limb TECHNIQUE: Magnetic resonance imaging (MRI) of the left upper arm was performed without and with 20 m L Multihance intravenous contrast. A marker was placed over the mass. Sequences included axial, sagi ttal and coronal T1-weighted FSE and fluid sensitive FSE STIR, axial T1-weighted FS FSE and post cont rast axial and coronal T1-weighted FS FSE were also obtained. COMPARISON: None. FINDINGS: Normal appearance of the subcutaneous fat and underlying musculature at the left upper arm. Specifica lly no lipoma or other abnormal masses or fluid collections underlying the marker indicating the site of concern at the lateral left upper arm. Subarticular marrow edema and enhancement at the acromiocl avicular joint consistent with arthritis which could be either degenerative or inflammatory in etiolo gy. Marrow signal is otherwise unremarkable. No other abnormally enhancing lesions identified. Althou gh not diagnostically evaluated on the larger [id number] of imaging, there is suggestion of a SLAP tear of the posterior superior left glenoid labrum with suggestion of a small associated para labral cyst mild left glenohumeral osteoarthritis. No joint effusion. A few normal sized and normal-appeari ng left axillary lymph nodes with typical prominent central fatty [place]. IMPRESSION: 1. No correlate identified for reported soft tissue mass at the lateral left upper arm. Specifically no lipoma or other abnormal masses or fluid collections identified. 2. Mild left glenohumeral osteoarthritis with likely tear of the posterior superior left acetabular l abrum. 3. Arthritis with mild inflammatory changes at the left acromioclavicular joint. Reviewed, dictated and finalized at location A. IMPRESSION: 1. No correlate identified for reported soft tissue mass at the lateral left up per arm. Specifically no lipoma or other abnormal masses or fluid collections i dentified. 2. Mild left glenohumeral osteoarthritis with likely tear of the posterior supe rior left acetabular labrum. 3. Arthritis with mild inflammatory changes at the left acromioclavicular joint .
== END 2022-07-21 10:46 ==
PROVIDERS: PCP Physician Assistant; Visit Provider Physician Assistant
DX: R22.32 Localized swelling, mass and lump, left upper limb (principal); R10.11 Right upper quadrant pain; M19.012 Primary osteoarthritis, left shoulder
CPT/HCPCS: 73220; A9577

== ENCOUNTER 2022-08-01 08:48 | Outpatient (CLI) | payer OTHER, SELFPAY ==
--- NOTE | ~2022-08-01 | CT_ITS ---
EXAMINATION: CT abdomen w con DATE: 08/01/2022 09:30 INDICATION: Right upper quadrant pain TECHNIQUE: Computed tomography (CT) of the abdomen and pelvis was performed with 100 cc Omnipaque 350 intravenous contrast. The dose-length product was 787.64 mGy-cm. Automated exposure control and iter ative reconstruction technique were employed. COMPARISON: CT dated 06/29/2019. FINDINGS: There is a 4 mm fissural nodule on the right, image 14. Lung bases are otherwise unremarkab le. Heart size normal. No significant pleural or pericardial effusion. There is a laparoscopic adjust able gastric band. There is mild thickening of the distal esophagus, suspicious for esophagitis. Fatt y infiltration of the liver. The spleen, pancreas, adrenal glands and kidneys are unremarkable. Nonob structive bowel gas pattern. Retroaortic left renal vein. Mild atherosclerosis. Gallbladder is presen t. No free air or free fluid. Mild lumbar spondylosis. There are several accessory splenules. No foca l lytic or blastic lesions. IMPRESSION: 1. Mild thickening of the distal esophagus, suspicious for esophagitis. 2: Fissural nodule measuring 4 mm on the right, likely benign. Consider follow-up low dose CT chest in 12 months. Reviewed, dictated and finalized at location B. IMPRESSION: 1. Mild thickening of the distal esophagus, suspicious for esophagitis. 2: Fissural nodule measuring 4 mm on the right, likely benign. Consider follow -up low dose CT chest in 12 months.
[2022-08-01 09:20] LABS: Estimated Glomerular Filt Rate > 60
== END 2022-08-01 08:49 ==
PROVIDERS: PCP Physician Assistant; Visit Provider Physician Assistant
DX: R10.11 Right upper quadrant pain (principal); K22.9 Disease of esophagus, unspecified; R91.1 Solitary pulmonary nodule
CPT/HCPCS: 74160; Q9967

== ENCOUNTER → 2022-08-02 11:08 | Outpatient (CLI) | payer OTHER, SELFPAY ==
--- NOTE | ~2022-08-02 | MM_ITS ---
EXAMINATION: MM screening [facility] BI w anabell HISTORY: Screening mammogram TECHNIQUE: Craniocaudal and mediolateral oblique 3-D tomosynthesis images were obtained and synthetic 2-D images were generated. CAD analysis was submitted and interpreted. COMPARISON: 2020, 08/08/2017 bilateral screening mammogram examinations BREAST PARENCHYMAL COMPOSITION: There are scattered areas of fibroglandular density. FINDINGS: There is no evidence of suspicious mass, calcification, or architectural distortion to sugg est malignancy in either breast. There has been no suspicious interval change. IMPRESSION: 1. No mammographic evidence of malignancy. 2. Recommend routine screening mammography in one year. BI-RADS Category 1: Negative Reviewed, dictated and finalized at location B.
== END ==
PROVIDERS: PCP Physician Assistant; Visit Provider Physician Assistant
DX: Z12.31 Encounter for screening mammogram for malignant neoplasm of breast (principal)
CPT/HCPCS: 77063; 77067

== ENCOUNTER 2022-09-26 01:46 | Day surgery (SDC) | payer OTHER, SELFPAY ==
[2022-09-19 11:24] VITALS: BMI 39.4
[2022-09-26 09:13] VITALS: BP 150/96; PULSE 105; RESP 20; TEMP 36.2; O2SAT 100
--- NOTE | 2022-09-26 09:21 | PM.HPGS ---
History of Present Illness History of Present Illness Consent: Risks, benefits, and alternatives have been discussed and questions answered. Patient agrees to proceed with procedure. Chief complaint: Esophagitis, neoplasm screening Narrative: Zoraida Murphy is a 51 year old female with chronic acid reflux for which she takes omeprazole. She has had episodes of vomiting, particularly after meals. Her weight is stable. She has also been having pain in the upper right side of her abdomen which is physician related. Review of Systems Review of Systems: All systems reviewed & are unremarkable except as noted in HPI and below PMFSH Past Medical History Medical History Abnormal uterine bleeding Gastroesophageal reflux disease HTN (hypertension) Hypercholesterolemia Obesity Thyroid cancer Family History Family History Father Hypertension Other Diabetes mellitus Family history of malignant neoplasm of male breast Social History Social History Smoking packs per day: 1 Smoking cigarettes per day: 20.0 Years smoked: 15 Smoking pack-years: 15.00 Smoking status: Former smoker Tobacco type: cigarettes Smoking end date: 10/19/99 Alcohol intake: current Alcohol use details: 1 drink every 3-4 months Substance use: never Substance use type: does not use Lack of Transportation: No Lack of Food: Never True Current Housing: I Have Housing Concerned About Future Housing: No Difficulty Paying Gas/Electric Bills: No Difficulty Paying for Meds: No Currently Unemployed: No Education: High School Diploma/GED Difficulty w/ Childcare or Family Care: No Living arrangements: with family Additional living arrangements comments: [facility] [employer] [facility] Spiritual care concerns: No Meds Home Medications and Allergies Home Medications Medication Instructions Recorded Confirmed Type atorvastatin 40 mg tablet 40 mg PO HS 03/30/19 09/19/22 History citalopram 20 mg tablet 20 mg PO QACLUNCH 09/28/20 09/19/22 History levothyroxine 200 mcg tablet 200 mcg PO QAM 09/28/20 09/26/22 History omeprazole 40 mg capsule,delayed 40 mg PO QACLUNCH 09/28/20 09/19/22 History release naltrexone 8 mg-bupropion 90 mg 2 tablet PO DAILY 09/19/22 09/19/22 History tablet,extended release (Contrave) Allergies Allergy/AdvReac Type Severity Reaction Status Date / Time No Known Allergies Allergy Verified 09/26/22 09:11 Vital Signs Vital Signs - 24 hr 09/26/22 09:13 Temperature 36.2 C L Pulse Rate 105 H Respiratory Rate 20 Blood Pressure 150/96 H Pulse Oximetry 100 Oxygen Delivery Room Air Exam Const: General: alert Orientation/consciousness: patient oriented x3 Resp: Auscultation: clear to auscultation bilaterally Cardio: Rhythm: regular rhythm GI: GI Palp: Yes Soft to palpation and No Tenderness to palpation present (GI) Neuro: General: patient oriented x3 Assessment and Plan Assessment and plan (1) Gastroesophageal reflux disease: Code(s): K21.9 - Gastro-esophageal reflux disease without esophagitis Status: Acute Assessment and Plan: EGD with possible biopsy or dilatation or cautery. (2) Colon cancer screening: Code(s): Z12.11 - Encounter for screening for malignant neoplasm of colon Status: Acute Assessment and Plan: Colonoscopy with possible biopsy or polypectomy or cautery or injection of substances.
[2022-09-26] MEDS: LACTATED RINGERS 1,000 ML 150 ML IV CONT (09:24)
--- NOTE | 2022-09-26 09:27 | WPDANESEPPF ---
Anes - Initial Pre Proc Eval Procedure: Operation Date: 09/26/22 10:00 Proposed Procedures p Esophagogastroduodenoscopy & Screening Colonoscopy - Oscar Samayoa MD Date/Time: 09/26/22 09:27 Surgeon: Oscar Samayoa MD Pre Op Diagnosis: Esophagitis, neoplasm screening Patient Data Age: 51 Gender: F Height: 1.65 m Weight: 107.3 kg Last Vital Signs Temp 36.2 C L 09/26/22 09:13 Pulse 105 H 09/26/22 09:13 Resp 20 09/26/22 09:13 BP 150/96 H 09/26/22 09:13 Pulse Ox 100 09/26/22 09:13 O2 Del Method Room Air 09/26/22 09:13 Allergies Allergy/AdvReac Type Severity Reaction Status Date / Time No Known Allergies Allergy Verified 09/26/22 09:11 Home Medications Medication Instructions Recorded Confirmed Type atorvastatin 40 mg tablet 40 mg PO HS 03/30/19 09/19/22 History citalopram 20 mg tablet 20 mg PO QACLUNCH 09/28/20 09/19/22 History levothyroxine 200 mcg tablet 200 mcg PO QAM 09/28/20 09/26/22 History omeprazole 40 mg capsule,delayed 40 mg PO QACLUNCH 09/28/20 09/19/22 History release naltrexone 8 mg-bupropion 90 mg 2 tablet PO DAILY 09/19/22 09/19/22 History tablet,extended release (Contrave) Patient hx anesthesia problems: none Family hx anesthesia problems: none Results Review: All pre-operative results and documents have been reviewed as part of the pre-operative evaluation. [facility] Past Medical History Medical History Abnormal uterine bleeding Gastroesophageal reflux disease HTN (hypertension) Hypercholesterolemia Obesity Thyroid cancer Family History Family History Father Hypertension Other Diabetes mellitus Family history of malignant neoplasm of male breast Social History Social History Smoking packs per day: 1 Smoking cigarettes per day: 20.0 Years smoked: 15 Smoking pack-years: 15.00 Smoking status: Former smoker Tobacco type: cigarettes Smoking end date: 10/19/99 Alcohol intake: current Alcohol use details: 1 drink every 3-4 months Substance use: never Substance use type: does not use Lack of Transportation: No Lack of Food: Never True Current Housing: I Have Housing Concerned About Future Housing: No Difficulty Paying Gas/Electric Bills: No Difficulty Paying for Meds: No Currently Unemployed: No Education: High School Diploma/GED Difficulty w/ Childcare or Family Care: No Living arrangements: with family Additional living arrangements comments: [employer] Spiritual care concerns: No Anes - Eval Final PreProcedure Day of Procedure 09/26/22 09:27 Patient weight: morbidly obese Heart: regular rate and rhythm Lungs: clear to auscultation Airway: Mallampati scale class II Neurological: alert and oriented Last oral intake: >/= 8 hours ASA classification: III Emergent: no Anesthetic plan: proceed Anesthesia type and monitoring: general ETT and standard monitoring Results Review: All pre-operative results and documents have been reviewed as part of the pre-operative evaluation. Informed Consent: The patient's anesthetic plan and its attendant risks and benefits were discussed with the patient/family/POA. Questions were solicited and answers provided to the satisfaction of the patient/family/POA.
--- NOTE | 2022-09-26 10:09 | SUR.OPER ---
EGD start 1006 end 1008, Colonoscopy start 101
--- NOTE | 2022-09-26 10:29 | SUR.OPER ---
Oral suction used by MALCOLM
[2022-09-26 10:36] VITALS: BP 109/60; PULSE 98; RESP 17; O2SAT 96
[2022-09-26 10:46] VITALS: BP 108/67; PULSE 81; RESP 13; O2SAT 100
[2022-09-26 10:56] VITALS: BP 103/63; PULSE 78; RESP 16; O2SAT 100
== END 2022-09-26 11:08 | disposition home or self-care (01) ==
PROVIDERS: PCP Physician Assistant; Visit Provider Internal Medicine Gastroenterology
PROC: 0DJ08ZZ Inspection of Upper Intestinal Tract, Via Natural or Artificial Opening Endoscopic (ICD-10-PCS; CPT 43235; principal; 2022-09-26 10:00)
DX: Z12.11 Encounter for screening for malignant neoplasm of colon (principal); K57.30 Diverticulosis of large intestine without perforation or abscess without bleeding; K21.9 Gastro-esophageal reflux disease without esophagitis; Z98.84 Bariatric surgery status; I10 Essential (primary) hypertension; E78.00 Pure hypercholesterolemia, unspecified; E66.01 Morbid (severe) obesity due to excess calories; Z68.39 Body mass index [BMI] 39.0-39.9, adult; Z85.850 Personal history of malignant neoplasm of thyroid; Z87.891 Personal history of nicotine dependence
CPT/HCPCS: 45378; 43235; J2001; J2704; J7120

== ENCOUNTER 2023-03-11 11:29 | Outpatient (CLI) | payer OTHER, SELFPAY ==
[2023-03-11 12:00] LABS: Anion Gap 11 mmol/L (8-16); Blood Urea Nitrogen 16 mg/dL (7-17); Calcium 9.4 mg/dL (8.4-10.2); Carbon Dioxide 28 mmol/L (22-30); Chloride 100 mmol/L (98-107); Estimated Glomerular Filt Rate 58; Glucose 119 mg/dL (65-110); Sodium 139 mmol/L (137-145)
== END 2023-03-11 11:30 | disposition home or self-care (01) ==
LOC: ANHSURGERY 11:33
PROVIDERS: Anesthesiology; PCP Physician Assistant; Visit Provider Orthopaedic Surgery
DX: Z79.899 Other long term (current) drug therapy (principal); Z01.818 Encounter for other preprocedural examination
CPT/HCPCS: 36415; 80048

== ENCOUNTER 2023-03-18 01:12 | Day surgery (SDC) | payer OTHER, SELFPAY ==
[2023-03-09 14:15] VITALS: BMI 40.3
--- NOTE | 2023-03-09 14:22 | PC.NURSE ---
Report to the Outpatient Waiting Room, entrance under the green pavilion located off [facility], at time 12:00 on date 03/18/23. Planned Procedure Time: 2:00. Time changes happen often and if your time is changed the preop area will call you the afternoon before. - You and your visitor will be asked to self-screen and do not enter if you have any COVID symptoms. - A mask is optional within the hospital at this time. Patients may have clear liquids (water, carbonated beverages, clear teas, apple juice) until 3 hours prior to surgery (11:00) with a maximum of 20 ounces. - No food from midnight until time of surgery Take the following medications with a SIP of water the morning of surgery: LEVOTHYROXINE, BUPROPION DO NOT STOP ANY OF YOUR OTHER PRESCRIPTION MEDICATIONS PRIOR TO SURGERY ?EXCEPT THE FOLLOWING Medications to discontinue per physician: N/A Date to take last dose: N/A Please no make-up, nail uzbek, hairspray, perfume, deodorant, or body powder the day of surgery. No jewelry (including any body piercings) or valuables the day of surgery, leave them at home. Please take a shower or bath the night before, or the morning of, surgery with an antibacterial soap. Wear comfortable, loose fitting clothing. - Jewelry must be removed prior to entering the operating room. Rings and piercings that are not removed may be cut off. - The hospital will not accept responsibility for valuables. - Please leave all valuables, including medications, at home the day of surgery. If you are going home after surgery, a licensed rolloff driver must drive you home. - NO public transportation without another adult if you receive anesthesia. - We recommend that an adult stay with you for 24 hours following discharge. - We also recommend that you do not drive, make important decision, drink alcoholic beverages, or take any drugs that were not prescribed by your health care provider for at least 24 hours after your discharge time. Follow any additional instructions given to you from your surgeon. If you or anyone in your household have experienced Covid symptoms in the past week, please notify your surgeon or the nurse liaison at the phone number below for possible testing. Telephone instructions given to PT - NUBIA LOPEZ and asked if any additional questions and then verbalized understanding. Patient advised to call surgeon office or pre surgery nurse liaison [phone] if any additional questions.
--- NOTE | 2023-03-18 07:13 | WPDHPUPDATE1 ---
History and Physical Update Update Date/Time: 03/18/23 07:13 History and Physical has been reviewed, including an updated exam of the patient. There are NO changes in the patient's condition. Risks, benefits, and alternatives have been discussed and questions answered. Patient agrees to proceed with procedure.
--- NOTE | 2023-03-18 08:17 | WPDANESEPPF ---
Anes - Initial Pre Proc Eval Procedure: Operation Date: 03/18/23 11:00 Proposed Procedures p Left Carpal Tunnel Release - Clovis Raya MD Date/Time: 03/18/23 08:17 Surgeon: Clovis Raya MD Pre Op Diagnosis: Left Carpal Tunnel Syndrome Patient Data Age: 52 Gender: F Height: 1.63 m Weight: 106.6 kg Allergies Allergy/AdvReac Type Severity Reaction Status Date / Time No Known Allergies Allergy Verified 03/18/23 09:24 Home Medications Medication Instructions Recorded Confirmed Type atorvastatin 40 mg tablet 40 mg PO HS 03/30/19 03/18/23 History levothyroxine 200 mcg tablet 150 mcg PO DAILY 09/28/20 03/18/23 History omeprazole 40 mg capsule,delayed 40 mg PO DAILY 09/28/20 03/18/23 History release bupropion HCl 150 mg 24 hr tablet, 150 mg PO DAILY 03/09/23 03/18/23 History extended release triamterene 37.5 1 cap PO DAILY 03/09/23 03/18/23 History mg-hydrochlorothiazide 25 mg capsule chlorhexidine gluconate 4 % 1 applic topical ONCE #237 mL 03/11/23 Rx topical liquid (Hibiclens) hydrocodone 5 mg-acetaminophen 325 1 tablet PO Q12H PRN pain #20 tabs 03/18/23 Rx mg tablet Patient hx anesthesia problems: none Family hx anesthesia problems: none Results Review: All pre-operative results and documents have been reviewed as part of the pre-operative evaluation. [facility], [facility] Past Medical History Medical History (Updated 03/18/23 @ 08:18 by Vinny De La Rosa DO) Abnormal uterine bleeding Carpal tunnel syndrome Gastroesophageal reflux disease Hiatal hernia HTN (hypertension) Hypercholesterolemia Left hand pain Left knee DJD Obesity CALEB (obstructive sleep apnea) Right hand pain Right knee DJD Thyroid cancer Surgical History Surgical History H/O thyroidectomy H/O total adrenalectomy H/O: hysterectomy (~2019) Family History Family History Father Hypertension Other Diabetes mellitus Family history of malignant neoplasm of male breast Social History Social History Smoking packs per day: 1 Smoking cigarettes per day: 20.0 Years smoked: 15 Smoking pack-years: 15.00 Smoking status: Former smoker Tobacco type: cigarettes Smoking end date: 04/20/99 Alcohol intake: never Alcohol use details: 1 drink every 3-4 months Substance use: never Substance use type: does not use Lack of Transportation: No Lack of Food: Never True Current Housing: I Have Housing Concerned About Future Housing: No Difficulty Paying Gas/Electric Bills: No Difficulty Paying for Meds: No Currently Unemployed: No Education: High School Diploma/GED Difficulty w/ Childcare or Family Care: No Living arrangements: with family Additional living arrangements comments: [employer] Spiritual care concerns: No Anes - Eval Final PreProcedure Day of Procedure 03/18/23 08:17 Patient weight: morbidly obese Heart: regular rate and rhythm Lungs: clear to auscultation Airway: Mallampati scale class II Neurological: alert and oriented Last oral intake: >/= 8 hours ASA classification: III Emergent: no Anesthetic plan: proceed Anesthesia type and monitoring: general LMA and standard monitoring Results Review: All pre-operative results and documents have been reviewed as part of the pre-operative evaluation. Informed Consent: The patient's anesthetic plan and its attendant risks and benefits were discussed with the patient/family/POA. Questions were solicited and answers provided to the satisfaction of the patient/family/POA.
[2023-03-18] MEDS: ACETAMINOPHEN 500 MG TABLET 1000 MG PO (09:38)
[2023-03-18] MEDS: CELECOXIB 200 MG CAPSULE PO (09:38)
[2023-03-18] MEDS: LACTATED RINGERS 1,000 ML 30 ML IV CONT (10:00)
[2023-03-18 10:14] VITALS: BP 104/72; PULSE 86; RESP 16; TEMP 36.4; O2SAT 96
[2023-03-18] MEDS: ceFAZolin 2 GM/D5W 50 ML 2 GM/50 ML BAG IVPB (10:56)
[2023-03-18] MEDS: BUPivacaine HCL 0.5% PF 30 ML VIAL 10 ML INFILTRATE (11:19)
--- NOTE | 2023-03-18 11:39 | W.PM.PROC2 ---
Procedure Note - Detailed Date of Procedure 03/18/23 Pre-op Diagnosis Left Carpal Tunnel Syndrome Post-op Diagnosis Same Procedure Performed LEFT CTR Surgeon Clovis Raya MD Anesthesia General Description of Procedure THE LEFT UPPER EXTREMITY WAS PREPPED AND DRAPED IN THE STERILE FASHION. THE CARPAL TUNNEL WAS MARKED FROM THE FLEXED RING FINGER. THE TORNEQUET WAS INFLATED. THE INCISION WAS MADE AT THE MID PALM DOWN THROUGH THE SUBCUTANEOUS TISSUES. THE PALMAR FASCIA WAS IDENTIFIED. AN INCISION WAS MADE THROUGH THE PALMAR FASCIA UNTIL THE CARPAL TUNNEL WAS ENTERED. A MOSQUITO HEMOSTAT WAS USED TO PROTECT THE MEDIAN NERVE WHILE THE INCISION TO THE PALMAR FASCIA WAS COMPLETE PROXIMALLY AND DISTALLY TO THE CARDINAL LINE. NEXT, THE TRANSVERSE CARPAL LIGAMENT WAS IDENTIFIED. A FREIER ELEVATOR WAS USED TO SEPARATE THE NERVE FROM THE LIGAMENT. A METZENBAUM SCISSORS WAS THEN USED TO INCISE THE TRANSVERSE CARPAL LIGAMENT UNTIL THERE WAS A COMPLETE RELEASE OF THE CARPAL TUNNEL. THE MEDIAN NERVE WAS INTACT. THE TOURNEQUET WAS DEFLATED. THE BLEEDERS WERE CAUTERIZED. THE WOUND WAS WASHED. THE SKIN WAS APPROXIMATED WITH 4-0 NYLON SUTURE. STERILE DRESSING WAS APPLIED. PATIENT WAS EXTUBATED AND SENT TO THE RECOVERY ROOM. Estimated Blood Loss 5 Complications No immediate complications Condition Stable Disposition PACU
[2023-03-18 11:40] VITALS: BP 107/69; PULSE 78; RESP 12; O2SAT 97
[2023-03-18 12:10] VITALS: BP 97/66; PULSE 63; RESP 12; O2SAT 97
[2023-03-18 12:35] VITALS: BP 106/66; PULSE 67; RESP 12
== END 2023-03-18 12:40 | disposition home or self-care (01) ==
PROVIDERS: PCP Physician Assistant; Visit Provider Orthopaedic Surgery
PROC: (CPT 64721; principal; 2023-03-18 11:00)
DX: G56.02 Carpal tunnel syndrome, left upper limb (principal); I10 Essential (primary) hypertension; E78.00 Pure hypercholesterolemia, unspecified; K21.9 Gastro-esophageal reflux disease without esophagitis; M17.0 Bilateral primary osteoarthritis of knee; E66.01 Morbid (severe) obesity due to excess calories; Z68.41 Body mass index [BMI] 40.0-44.9, adult; Z79.891 Long term (current) use of opiate analgesic; Z87.891 Personal history of nicotine dependence; Z80.3 Family history of malignant neoplasm of breast; G47.33 Obstructive sleep apnea (adult) (pediatric)
CPT/HCPCS: 64721; 36415; 80048; A9270; J0690; J1100; J2250; J2405; J2704; J3010; J7120

== ENCOUNTER → 2023-04-08 16:42 | Outpatient (CLI) | payer OTHER, SELFPAY ==
--- NOTE | ~2023-04-08 | XR_ITS ---
EXAMINATION: XR foot RT min 3V DATE: 04/08/2023 17:08 INDICATION: Injury of right ankle. Right foot pain. TECHNIQUE: 4 views of right foot were obtained. COMPARISON: None. FINDINGS: Bone alignment is normal. No fracture. There is severe osteoarthritis of first metatarsopha langeal joint and mild osteoarthritis of second metatarsophalangeal joint and some of the midfoot prudence nts and interphalangeal joints. There is a fragment of heterotopic ossification dorsal to first metat arsophalangeal joint. There are enthesophytes at the posterior and plantar aspects of calcaneal tuber osity. IMPRESSION: 1. Polyarticular osteoarthritis. Reviewed, dictated and finalized at location E. [facility]
--- NOTE | ~2023-04-08 | XR_ITS ---
EXAMINATION: XR ankle RT min 3V DATE: 04/08/2023 17:08 INDICATION: Right ankle injury and pain. TECHNIQUE: 4 views of right ankle were obtained. COMPARISON: None. FINDINGS: Bone alignment is normal. No fracture. There is mild osteoarthritis of the ankle joint and talonavicular joint. There are enthesophytes at the posterior and plantar aspects of calcaneal tubero sity. There is ankle soft tissue swelling. IMPRESSION: 1. Polyarticular osteoarthritis. Reviewed, dictated and finalized at location E. [facility]
== END ==
PROVIDERS: PCP Physician Assistant; Visit Provider Physician Assistant
DX: S99.911A Unspecified injury of right ankle, initial encounter (principal); X58.XXXA Exposure to other specified factors, initial encounter; M19.071 Primary osteoarthritis, right ankle and foot
CPT/HCPCS: 73610; 73630

== ENCOUNTER 2023-04-24 00:49 | Day surgery (SDC) | payer OTHER, SELFPAY ==
[2023-04-09 14:08] VITALS: BMI 38.9
--- NOTE | 2023-04-09 14:33 | PC.NURSE ---
Report to the Outpatient Waiting Room, entrance under the green pavilion located off [facility], at time 08:30AM on date 04-24-23. Planned Procedure Time: 10:30AM. Time changes happen often and if your time is changed the preop area will call you the afternoon before. - You and your visitor will be asked to self-screen and do not enter if you have any COVID symptoms. - A mask is optional within the hospital at this time. Patients may have clear liquids (water, carbonated beverages, clear teas, apple juice) until 3 hours prior to surgery (07:30AM) with a maximum of 20 ounces. - No food from midnight until time of surgery Take the following medications with a SIP of water the morning of surgery: LEVOTHYROXINE DO NOT STOP ANY OF YOUR OTHER PRESCRIPTION MEDICATIONS PRIOR TO SURGERY ?EXCEPT THE FOLLOWING Medications to discontinue per physician MOUNROXANA Date to take last dose 10 DAYS PRIOR TO SURGERY Please no make-up, nail palauan, hairspray, perfume, deodorant, or body powder the day of surgery. No jewelry (including any body piercings) or valuables the day of surgery, leave them at home. Please take a shower or bath the night before, or the morning of, surgery with an antibacterial soap. Wear comfortable, loose fitting clothing. Children are encouraged to wear pajamas. - Jewelry must be removed prior to entering the operating room. Rings and piercings that are not removed may be cut off. - The hospital will not accept responsibility for valuables. - Please leave all valuables, including medications, at home the day of surgery. If you are going home after surgery, a licensed milk delivery driver must drive you home. - NO public transportation without another adult if you receive anesthesia. - We recommend that an adult stay with you for 24 hours following discharge. - We also recommend that you do not drive, make important decision, drink alcoholic beverages, or take any drugs that were not prescribed by your health care provider for at least 24 hours after your discharge time. Follow any additional instructions given to you from your surgeon. If you or anyone in your household have experienced Covid symptoms in the past week, please notify your surgeon or the nurse liaison at the phone number below for possible testing. Telephone instructions given to PATIENT and asked if any additional questions and then verbalized understanding. Patient advised to call surgeon office or pre surgery nurse liaison [phone] if any additional questions.
[2023-04-24] VITALS (7 sets, daily range): BP systolic 101–135; BP diastolic 67–100; PULSE 58–81; RESP 8–20; TEMP 36.1–36.8; O2SAT 95–100
--- NOTE | 2023-04-24 07:27 | WPDHPUPDATE1 ---
History and Physical Update Update Date/Time: 04/24/23 07:27 History and Physical has been reviewed, including an updated exam of the patient. There are NO changes in the patient's condition. Risks, benefits, and alternatives have been discussed and questions answered. Patient agrees to proceed with procedure.
[2023-04-24] MEDS: ACETAMINOPHEN 500 MG TABLET 1000 MG PO (09:00)
[2023-04-24] MEDS: CELECOXIB 200 MG CAPSULE PO (09:00)
[2023-04-24] MEDS: LACTATED RINGERS 1,000 ML 30 ML IV CONT (09:10)
--- NOTE | 2023-04-24 10:24 | WPDANESEPPF ---
Anes - Initial Pre Proc Eval Procedure: Operation Date: 04/24/23 10:30 Proposed Procedures p Right Carpal Tunnel Release - Clovis Raya MD Date/Time: 04/24/23 10:24 Surgeon: Clovis Raya MD Pre Op Diagnosis: Right Carpal Tunnel Syndrome Patient Data Age: 52 Gender: F Height: 1.63 m Weight: 102.1 kg Last Vital Signs Temp 36.8 C 04/24/23 09:20 Pulse 81 04/24/23 09:20 Resp 16 04/24/23 09:20 BP 135/100 H 04/24/23 09:20 Pulse Ox 95 04/24/23 09:20 O2 Del Method Room Air 04/24/23 09:20 Allergies Allergy/AdvReac Type Severity Reaction Status Date / Time No Known Allergies Allergy Verified 04/24/23 08:51 Home Medications Medication Instructions Recorded Confirmed Type atorvastatin 40 mg tablet 40 mg PO HS 03/30/19 04/24/23 History levothyroxine 200 mcg tablet 150 mcg PO DAILY 09/28/20 04/24/23 History omeprazole 40 mg capsule,delayed 40 mg PO DAILY 09/28/20 04/24/23 History release bupropion HCl 150 mg 24 hr tablet, 150 mg PO DAILY 03/09/23 04/24/23 History extended release triamterene 37.5 1 cap PO DAILY 03/09/23 04/24/23 History mg-hydrochlorothiazide 25 mg capsule Mounjaro IM WEEKLY 04/09/23 History Patient hx anesthesia problems: none Family hx anesthesia problems: none Results Review: All pre-operative results and documents have been reviewed as part of the pre-operative evaluation. [facility] Past Medical History Medical History Abnormal uterine bleeding Carpal tunnel syndrome Gastroesophageal reflux disease Hiatal hernia HTN (hypertension) Hypercholesterolemia Left hand pain Left knee DJD Obesity CALEB (obstructive sleep apnea) Right hand pain Right knee DJD Thyroid cancer Surgical History Surgical History H/O thyroidectomy H/O total adrenalectomy H/O: hysterectomy (~2019) Family History Family History Father Hypertension Other Diabetes mellitus Family history of malignant neoplasm of male breast Social History Social History Smoking packs per day: 1 Smoking cigarettes per day: 20.0 Years smoked: 15 Smoking pack-years: 15.00 Smoking status: Former smoker Tobacco type: cigarettes Smoking end date: 04/20/99 Alcohol intake: never Alcohol use details: 1 drink every 3-4 months Substance use: never Substance use type: does not use Lack of Transportation: No Lack of Food: Never True Current Housing: I Have Housing Concerned About Future Housing: No Difficulty Paying Gas/Electric Bills: No Difficulty Paying for Meds: No Currently Unemployed: No Education: High School Diploma/GED Difficulty w/ Childcare or Family Care: No Living arrangements: with family Additional living arrangements comments: [employer] Spiritual care concerns: No Anes - Eval Final PreProcedure Day of Procedure 04/24/23 10:24 Patient weight: obese Heart: regular rate and rhythm Lungs: clear to auscultation Airway: Mallampati scale class II Neurological: alert and oriented Last oral intake: >/= 8 hours ASA classification: III Emergent: no Anesthetic plan: proceed Anesthesia type and monitoring: general LMA and standard monitoring Results Review: All pre-operative results and documents have been reviewed as part of the pre-operative evaluation. Informed Consent: The patient's anesthetic plan and its attendant risks and benefits were discussed with the patient/family/POA. Questions were solicited and answers provided to the satisfaction of the patient/family/POA.
[2023-04-24] MEDS: ceFAZolin 2 GM/D5W 50 ML 2 GM/50 ML BAG IVPB (11:02)
[2023-04-24] MEDS: BUPivacaine HCL 0.5% PF 30 ML VIAL 10 ML INFILTRATE (11:29)
--- NOTE | 2023-04-24 11:54 | W.PM.PROC2 ---
Procedure Note - Detailed Date of Procedure 04/24/23 Pre-op Diagnosis Right Carpal Tunnel Syndrome Post-op Diagnosis Same Procedure Performed RIGHT CTR Surgeon Clovis Raya MD Anesthesia General Description of Procedure THE RIGHT UPPER EXTREMITY WAS PREPPED AND DRAPED IN THE STERILE FASHION. THE CARPAL TUNNEL WAS MARKED FROM THE FLEXED RING FINGER. THE TOURNIQUET WAS INFLATED. THE INCISION WAS MADE AT THE MID PALM DOWN THROUGH THE SUBCUTANEOUS TISSUES. THE PALMAR FASCIA WAS IDENTIFIED. AN INCISION WAS MADE THROUGH THE PALMAR FASCIA UNTIL THE CARPAL TUNNEL WAS ENTERED. A MOSQUITO HEMOSTAT WAS USED TO PROTECT THE MEDIAN NERVE WHILE THE INCISION TO THE PALMAR FASCIA WAS COMPLETE PROXIMALLY AND DISTALLY TO THE CARDINAL LINE. NEXT, THE TRANSVERSE CARPAL LIGAMENT WAS IDENTIFIED. A FREER ELEVATOR WAS USED TO SEPARATE THE NERVE FROM THE LIGAMENT. A METZENBAUM SCISSORS WAS THEN USED TO INCISE THE TRANSVERSE CARPAL LIGAMENT UNTIL THERE WAS A COMPLETE RELEASE OF THE CARPAL TUNNEL. THE MEDIAN NERVE WAS INTACT. THE TOURNIQUET WAS DEFLATED. THE BLEEDERS WERE CAUTERIZED. THE WOUND WAS WASHED. THE SKIN WAS APPROXIMATED WITH 4-0 NYLON SUTURE. STERILE DRESSING WAS APPLIED. PATIENT WAS EXTUBATED AND SENT TO THE RECOVERY ROOM. Estimated Blood Loss 5 Complications No immediate complications Condition Stable Disposition PACU
== END 2023-04-24 13:22 | disposition home or self-care (01) ==
PROVIDERS: PCP Physician Assistant; Visit Provider Orthopaedic Surgery
PROC: (CPT 64721; principal; 2023-04-24 10:30)
DX: G56.01 Carpal tunnel syndrome, right upper limb (principal); M79.641 Pain in right hand; I10 Essential (primary) hypertension; E78.00 Pure hypercholesterolemia, unspecified; Z85.850 Personal history of malignant neoplasm of thyroid; Z87.891 Personal history of nicotine dependence
CPT/HCPCS: 64721; A9270; J0690; J1100; J2250; J2405; J2704; J3010; J7120

== ENCOUNTER 2023-11-03 12:02 | Emergency (ER) | payer OTHER, SELFPAY ==
--- NOTE | 2023-11-03 12:09 | ED.URI ---
HPI - URI/Sore Throat General Chief Complaint: Upper Respiratory Infection Stated Complaint: cough,headache,sob Source: patient and RN notes reviewed Mode of arrival: ambulatory Limitations: no limitations History of Present Illness HPI Narrative: 53 y/o female presented for c/o cough and chest congestion, nasal congestion, headache and sneezing. Onset yesterday. States she feels the need to use her son's inhaler after exertion. Denies wheezing, n/v/d/f/c or body aches. Took a dose of Dayquil yesterday, it did not help. sick first. MD elicited complaint: cough Related Data Home Medications Medication Instructions Recorded Confirmed atorvastatin 40 mg tablet 40 mg PO HS 03/30/19 11/03/23 levothyroxine 200 mcg tablet 150 mcg PO DAILY 09/28/20 11/03/23 omeprazole 40 mg capsule,delayed 40 mg PO DAILY 09/28/20 11/03/23 release bupropion HCl 150 mg 24 hr tablet, 150 mg PO DAILY 03/09/23 11/03/23 extended release triamterene 37.5 1 cap PO DAILY 03/09/23 11/03/23 mg-hydrochlorothiazide 25 mg capsule tirzepatide 5 mg/0.5 mL 5 mg subcut WEEKLY 11/03/23 11/03/23 subcutaneous pen injector (Neda) Allergies Allergy/AdvReac Type Severity Reaction Status Date / Time amoxicillin [From Augmentin] AdvReac Intermediate Nausea and Verified 11/03/23 12:21 Vomiting clavulanic acid AdvReac Intermediate Nausea and Verified 11/03/23 12:21 [From Augmentin] Vomiting Review of Systems Review of Systems: CONSTITUTIONAL: Denies malaise, chills, sweats, fever EYES: Denies visual changes, redness, or discharge ENT: Reports rhinorrhea, congestion, sore throat CARDIOVASCULAR: Denies chest pain, palpitations, edema RESPIRATORY: Reports cough, post nasal drainage, NOGUERA. Denies wheezing GASTROINTESTINAL: Denies abdominal pain, nausea, vomiting, diarrhea SKIN: Denies rash or itching MUSCULOSKELETAL: Denies myalgia NEUROLOGIC: reports headache PMFSH Past Medical History Medical History Abnormal uterine bleeding Carpal tunnel syndrome Gastroesophageal reflux disease Hiatal hernia HTN (hypertension) Hypercholesterolemia Left hand pain Left knee DJD Obesity CALEB (obstructive sleep apnea) Right hand pain Right knee DJD Thyroid cancer Surgical History Surgical History H/O thyroidectomy H/O total adrenalectomy H/O: hysterectomy (~2019) Family History Family History Father Hypertension Other Diabetes mellitus Family history of malignant neoplasm of male breast Social History Social History Smoking packs per day: 1 Smoking cigarettes per day: 20.0 Years smoked: 15 Smoking pack-years: 15.00 Smoking status: Former smoker Tobacco type: cigarettes Smoking end date: 04/20/99 Alcohol intake: never Alcohol use details: 1 drink every 3-4 months Substance use: never Substance use type: does not use Lack of Transportation: No Lack of Food: Never True Current Housing: I Have Housing Concerned About Future Housing: No Difficulty Paying Gas/Electric Bills: No Difficulty Paying for Meds: No Currently Unemployed: No Education: High School Diploma/GED Difficulty w/ Childcare or Family Care: No Living arrangements: with family Additional living arrangements comments: [employer] Spiritual care concerns: No Exam Narrative: GENERAL: mildly Ill-appearing, nontoxic EYES: PERRLA, conjunctivae clear ENT: Mucous membranes moist. TMs pearly beard with dull light reflex bilaterally; no tragal tenderness. Oropharynx not erythematous without lesions or exudate, no drooling, no hoarseness, no trismus, uvula midline. No tripod positioning, muffled voice, soft palate or pharyngeal wall bulging NECK: Supple. No lymphadenopathy CHEST: Clear t
[2023-11-03 12:15] VITALS: BP 113/57; PULSE 97; RESP 16; TEMP 36.1; O2SAT 97
== END 2023-11-03 12:43 | disposition home or self-care (01) ==
PROVIDERS: Emergency Provider Nurse Practitioner Family; PCP Physician Assistant
DX: J40 Bronchitis, not specified as acute or chronic (principal); Z20.822 Contact with and (suspected) exposure to COVID-19; Z87.891 Personal history of nicotine dependence; K21.9 Gastro-esophageal reflux disease without esophagitis; I10 Essential (primary) hypertension; E78.00 Pure hypercholesterolemia, unspecified; M17.0 Bilateral primary osteoarthritis of knee; E66.9 Obesity, unspecified; E89.0 Postprocedural hypothyroidism; Z68.43 Body mass index [BMI] 50.0-59.9, adult; Z85.850 Personal history of malignant neoplasm of thyroid
CPT/HCPCS: 87426; 99213; G0463

== ENCOUNTER 2023-12-23 09:01 | Outpatient (CLI) | payer OTHER, SELFPAY ==
[2023-12-23 10:13] LABS: Anion Gap 8 mmol/L (4-12); Blood Urea Nitrogen 13 mg/dL (7-17); Calcium 9.1 mg/dL (8.4-10.2); Carbon Dioxide 28 mmol/L (22-30); Chloride 103 mmol/L (98-107); Estimated Glomerular Filt Rate > 60; Glucose 92 mg/dL (65-110); Potassium 3.9 mmol/L (3.4-5.0); Sodium 139 mmol/L (137-145)
== END 2023-12-23 09:02 | disposition home or self-care (01) ==
PROVIDERS: Anesthesiology; PCP Physician Assistant; Visit Provider Orthopaedic Surgery
DX: Z51.81 Encounter for therapeutic drug level monitoring (principal); Z79.899 Other long term (current) drug therapy
CPT/HCPCS: 36415; 80048

== ENCOUNTER 2023-12-24 02:47 | Day surgery (SDC) | payer OTHER, SELFPAY ==
--- NOTE | 2023-12-18 16:33 | PC.NURSE ---
Report to the Outpatient Waiting Room, entrance under the green pavilion located off [facility], at time 0600 on date 12/24/23. Planned Procedure Time: 0730.? Time changes happen often and if your time is changed the preop area will call you the afternoon before. - You and your visitor will be asked to self-screen and do not enter if you have any COVID symptoms. Please call surgeon if you need to reschedule. - A mask is optional within the hospital at this time. Patients may have clear liquids (water, carbonated beverages, clear teas, apple juice) until 3 hours prior to surgery with a maximum of 20 ounces. 0430 - No food from midnight until time of surgery and no smoking - Infants may have breast milk until 4 hours before surgery, infant formula 6 hours prior to surgery. - Children will be allowed to drink immediately following surgery.? If applicable, please bring a bottle or sippy cup to assist with drinking. Juice, water, soda, and popsicles are readily available.? For infants on formula, please bring formula the day of surgery.? Pacifiers are allowed. Take only the following medications with a SIP of water on the morning of surgery: levothyroxine DO NOT STOP ANY OF YOUR OTHER PRESCRIPTION MEDICATIONS PRIOR TO SURGERY EXCEPT THE FOLLOWING Medications to discontinue per physician Neda- Last dose 12/10/23- hold for 10 days prior to surgery hold triamterene-hydrochlorothiazide, rosuvastatin, omprazole the day of surgery Please no make-up, nail uruguayan, hairspray, perfume, deodorant, or body powder the day of surgery.? No jewelry (including any body piercings) or valuables the day of surgery, leave them at home.? Please take a shower or bath the night before, or the morning of, surgery with an antibacterial soap.? Wear comfortable, loose fitting clothing.? Children are encouraged to wear pajamas. - Jewelry must be removed prior to entering the operating room.? Rings and piercings that are not removed may be cut off. - The hospital will not accept responsibility for valuables.? - Please leave all valuables, including medications, at home the day of surgery. If you are going home after surgery, a licensed pick up and delivery driver must drive you home.? - NO public transportation without another adult if you receive anesthesia. - We recommend that an adult stay with you for 24 hours following discharge. - We also recommend that you do not drive, make important decision, drink alcoholic beverages, or take any drugs that were not prescribed by your health care provider for at least 24 hours after your discharge time. For Pediatric surgeries, we recommend two adults accompany the child home. Follow any additional instructions given to you from your surgeon. Telephone instructions given to Patient- Zoraida Hurst and asked if any additional questions and then verbalized understanding. Patient advised to call surgeon office or pre surgery nurse liaison [phone] if any additional questions.
[2023-12-18 16:51] VITALS: BMI 37.8
--- NOTE | 2023-12-23 13:50 | PM.IMHP ---
H&P: HPI History of Present Illness Date/Time: 12/23/23 13:50 Chief Complaint: Right foot pain Narrative: 53-year-old woman with bilateral hallux rigidus. Underwent surgery for the left. Continued pain, swelling and difficulty with activity on the right. Presents for operative treatment. Review of Systems Constitutional: Constitutional: Denies fever(s) Eyes: Eyes: Denies blurry vision ENT: Reports Normal hearing present Cardiovascular: Cardiovascular: Denies chest pain and Denies dyspnea Respiratory: Respiratory: Denies dyspnea and Denies wheezing Gastrointestinal: Gastrointestinal: Denies abdominal pain Genitourinary: Genitourinary: Denies urinary urgency Musculoskeletal: Musculoskeletal: Reports as per HPI and Denies numbness Integumentary/Breasts: Skin/Breast: Denies changing lesions and Denies sores Neurologic: Reports Normal hearing present, Denies behavioral changes, Denies confusion, Denies numbness and Denies convulsions Psychiatric: Psychiatric: Denies behavioral changes, Denies confusion and Denies hallucinations Endocrine: Endocrine: Denies heat intolerance Hematologic/Lymphatic: Hematologic/Lymphatic: Denies easy bleeding Allergic/Immunologic: Allergic/Immunologic: Denies wheezing PMFSH Past Medical History Medical History Abnormal uterine bleeding Carpal tunnel syndrome Gastroesophageal reflux disease Hallux rigidus of left foot Hallux rigidus of right foot Hiatal hernia HTN (hypertension) Hypercholesterolemia Left hand pain Left knee DJD Obesity CALEB (obstructive sleep apnea) Right hand pain Right knee DJD Thyroid cancer Surgical History Surgical History H/O thyroidectomy H/O total adrenalectomy H/O: hysterectomy (~2019) Family History Family History Father Hypertension Other Diabetes mellitus Family history of malignant neoplasm of male breast Social History Social History Smoking packs per day: 1 Smoking cigarettes per day: 20.0 Years smoked: 15 Smoking pack-years: 15.00 Smoking status: Former smoker Tobacco type: cigarettes Smoking end date: 04/20/99 Alcohol intake: never Alcohol use details: 1 drink every 3-4 months Substance use: never Substance use type: does not use Lack of Transportation: No Lack of Food: Never True Current Housing: I Have Housing Concerned About Future Housing: No Difficulty Paying Gas/Electric Bills: No Difficulty Paying for Meds: No Currently Unemployed: No Education: High School Diploma/GED Difficulty w/ Childcare or Family Care: No Living arrangements: with family Additional living arrangements comments: [facility] [facility] Spiritual care concerns: No Meds Home Medications and Allergies Home Medications Medication Instructions Recorded Confirmed Type omeprazole 40 mg capsule,delayed 40 mg PO DAILY 09/28/20 12/18/23 History release bupropion HCl 150 mg 24 hr tablet, 150 mg PO QPM 03/09/23 12/18/23 History extended release triamterene 37.5 1 cap PO DAILY 03/09/23 12/18/23 History mg-hydrochlorothiazide 25 mg capsule albuterol sulfate 90 mcg/actuation 2 inh inhalation QID PRN shortness 11/03/23 12/18/23 Rx aerosol inhaler of breath or wheezing #8.5 grams tirzepatide 5 mg/0.5 mL 7.5 mg subcut WEEKLY 11/03/23 12/18/23 History subcutaneous pen injector (Mounjaro) levothyroxine 150 mcg tablet 150 mcg PO USEASDIRECTD 12/18/23 12/18/23 History (Synthroid) levothyroxine 175 mcg tablet 175 mcg PO USEASDIRECTD 12/18/23 12/18/23 History (Synthroid) rosuvastatin 10 mg tablet 10 mg PO QPM 12/18/23 12/18/23 History Allergies Allergy/AdvReac Type Severity Reaction Status Date / Time amoxicillin [From Augmentin] AdvReac Intermediate Andi
[2023-12-24 07:00] VITALS: BP 123/72; PULSE 69; RESP 14; TEMP 36.3; O2SAT 99
[2023-12-24] MEDS: LACTATED RINGERS 1,000 ML 30 ML IV CONT (07:00)
[2023-12-24] MEDS: ACETAMINOPHEN 500 MG TABLET 1000 MG PO (07:00)
[2023-12-24] MEDS: KETOROLAC 15 MG/ML VIAL (*BKC) IV PUSH (07:00)
--- NOTE | 2023-12-24 07:18 | WPDHPUPDATE1 ---
History and Physical Update Update Date/Time: 12/24/23 07:18 History and Physical has been reviewed, including an updated exam of the patient. There are NO changes in the patient's condition. Risks, benefits, and alternatives have been discussed and questions answered. Patient agrees to proceed with procedure.
--- NOTE | 2023-12-24 07:25 | WPDANESEPPF ---
Anes - Initial Pre Proc Eval Procedure: Operation Date: 12/24/23 07:30 Proposed Procedures p Right Hallux Cheilectomy - Edmar García MD Date/Time: 12/24/23 07:25 Surgeon: Edmar García MD Pre Op Diagnosis: right hallux rigidus Patient Data Age: 53 Gender: F Height: 1.63 m Weight: 102 kg Last Vital Signs Temp 36.3 C L 12/24/23 07:00 Pulse 69 12/24/23 07:00 Resp 14 12/24/23 07:00 BP 123/72 12/24/23 07:00 Pulse Ox 99 12/24/23 07:00 O2 Del Method Room Air 12/24/23 07:00 Allergies Allergy/AdvReac Type Severity Reaction Status Date / Time amoxicillin [From Augmentin] AdvReac Intermediate Nausea and Verified 12/24/23 07:24 Vomiting clavulanic acid AdvReac Intermediate Nausea and Verified 12/24/23 07:24 [From Augmentin] Vomiting Home Medications Medication Instructions Recorded Confirmed Type omeprazole 40 mg capsule,delayed 40 mg PO DAILY 09/28/20 12/18/23 History release bupropion HCl 150 mg 24 hr tablet, 150 mg PO QPM 03/09/23 12/18/23 History extended release triamterene 37.5 1 cap PO DAILY 03/09/23 12/18/23 History mg-hydrochlorothiazide 25 mg capsule albuterol sulfate 90 mcg/actuation 2 inh inhalation QID PRN shortness 11/03/23 12/18/23 Rx aerosol inhaler of breath or wheezing #8.5 grams tirzepatide 5 mg/0.5 mL 7.5 mg subcut WEEKLY 11/03/23 12/18/23 History subcutaneous pen injector (Mounjaro) levothyroxine 150 mcg tablet 150 mcg PO USEASDIRECTD 12/18/23 12/18/23 History (Synthroid) levothyroxine 175 mcg tablet 175 mcg PO USEASDIRECTD 12/18/23 12/18/23 History (Synthroid) rosuvastatin 10 mg tablet 10 mg PO QPM 12/18/23 12/18/23 History Patient hx anesthesia problems: none Family hx anesthesia problems: none Results Review: All pre-operative results and documents have been reviewed as part of the pre-operative evaluation. [facility] Past Medical History Medical History Abnormal uterine bleeding Carpal tunnel syndrome Gastroesophageal reflux disease Hallux rigidus of left foot Hallux rigidus of right foot Hiatal hernia HTN (hypertension) Hypercholesterolemia Left hand pain Left knee DJD Obesity CALEB (obstructive sleep apnea) Right hand pain Right knee DJD Thyroid cancer Surgical History Surgical History H/O thyroidectomy H/O total adrenalectomy H/O: hysterectomy (~2019) Family History Family History Father Hypertension Other Diabetes mellitus Family history of malignant neoplasm of male breast Social History Social History Smoking packs per day: 1 Smoking cigarettes per day: 20.0 Years smoked: 15 Smoking pack-years: 15.00 Smoking status: Former smoker Tobacco type: cigarettes Smoking end date: 04/20/99 Alcohol intake: never Alcohol use details: 1 drink every 3-4 months Substance use: never Substance use type: does not use Lack of Transportation: No Lack of Food: Never True Current Housing: I Have Housing Concerned About Future Housing: No Difficulty Paying Gas/Electric Bills: No Difficulty Paying for Meds: No Currently Unemployed: No Education: High School Diploma/GED Difficulty w/ Childcare or Family Care: No Living arrangements: with family Additional living arrangements comments: [employer] Spiritual care concerns: No Anes - Eval Final PreProcedure Day of Procedure 12/24/23 07:25 Patient weight: obese Heart: regular rate and rhythm Lungs: clear to auscultation Airway: Mallampati scale class II Neurological: alert and oriented Last oral intake: >/= 8 hours ASA classification: III Emergent: no Anesthetic plan: proceed Anesthesia type and monitoring: general GIVS and standard monitoring Results Review: Ricardo
[2023-12-24] MEDS: SCOPOLAMINE 1 MG PATCH 1 PATCH TRANSDERM (07:32)
[2023-12-24] MEDS: ceFAZolin 2 GM/D5W 50 ML 2 GM/50 ML BAG IVPB (07:33)
[2023-12-24] MEDS: BUPivacaine HCL 0.5% 10 ML AMP 20 ML INFILTRATE (08:08)
[2023-12-24 08:29] VITALS: BP 99/63; PULSE 61; RESP 14; O2SAT 99
--- NOTE | 2023-12-24 08:43 | W.PM.PROC2 ---
Procedure Note - Detailed Date of Procedure 12/24/23 Pre-op Diagnosis right hallux rigidus Post-op Diagnosis Same Procedure Performed Right hallux cheilectomy Surgeon Edmar García MD Prefabricated Houses Trimmer 1st events assistant Anesthesia MAC Indications 53-year-old woman underwent previous right hallux cheilectomy. Recurrence of dorsal osteophytes and prominence. Noted pain with activity and shoe wear. Presents for operative treatment. Findings Large dorsal osteophyte 1st metatarsal head. Description of Procedure Patient identified in the preoperative holding. Informed consent given. Operative extremity marked. Patient received intravenous antibiotics. Patient brought to the operating room where underwent general anesthetic by anesthesia team. Positioned supine on operating room table. Time-out performed confirming the patient, site of the surgery and the plan. Right Foot prepped and draped in the usual sterile surgical fashion using a ChloraPrep skin solution. Foot was exsanguinated with an Esmarch bandage and wrapped at the ankle as a tourniquet. Longitudinal incision made over the dorsum of the hallux metatarsophalangeal joint with a 15 blade knife utilizing the previous incision. Hemostasis controlled with electrocautery. Dorsal capsulotomy performed and reflected off the medial lateral aspect of the distal 1st metatarsal. Joint was exposed and large dorsal osteophyte as well as erosion of the dorsal portion of the metatarsal articular surface noted. Osteotomes used to resect the exostosis as well as the degenerative portions of the metatarsal head. Wound thoroughly irrigated antibiotic solution. Dorsal osteophyte from the proximal phalanx also removed with rongeur. Bone wax used to cover the exposed bone surface. Capsulotomy repaired with 2 Vicryl interrupted suture. Subcutaneous tissue repaired with 3 0 Monocryl interrupted suture and skin repaired with 4 O nylon running suture. Sterile dressing applied. Tourniquet released and good capillary refill in all toes ensured. The patient was then woken from anesthesia, extubated and taken to the recovery room in stable condition. All sponge, needle, instrument counts were correct at the end of the case. Estimated Blood Loss 5 Tourniquet Time Total Tourniquet Time: 40 Drains No Packing No Pathology None sent Complications None Condition Stable Disposition PACU [facility] Billing Surgery - Charge Forward: Surgery Billing ([id number])
[2023-12-24 08:55] VITALS: BP 111/73; PULSE 42; RESP 14; O2SAT 94
[2023-12-24] MEDS: oxyCODONE HCL (*CRX) 5 MG TAB IR PO (09:03)
[2023-12-24 09:20] VITALS: BP 112/63; PULSE 46; RESP 14; O2SAT 98
== END 2023-12-24 09:37 | disposition home or self-care (01) ==
PROVIDERS: PCP Physician Assistant; Visit Provider Orthopaedic Surgery
PROC: (CPT 28289; principal; 2023-12-24 07:30)
DX: M20.21 Hallux rigidus, right foot (principal); M25.774 Osteophyte, right foot; K21.9 Gastro-esophageal reflux disease without esophagitis; I10 Essential (primary) hypertension; E78.00 Pure hypercholesterolemia, unspecified; G47.33 Obstructive sleep apnea (adult) (pediatric); M17.0 Bilateral primary osteoarthritis of knee; Z79.51 Long term (current) use of inhaled steroids; Z79.85 Long-term (current) use of injectable non-insulin antidiabetic drugs; E66.9 Obesity, unspecified; Z68.38 Body mass index [BMI] 38.0-38.9, adult; Z98.890 Other specified postprocedural states; Z87.891 Personal history of nicotine dependence; Z85.850 Personal history of malignant neoplasm of thyroid; Z80.3 Family history of malignant neoplasm of breast
CPT/HCPCS: 28289; A9270; J0690; J1100; J1885; J2250; J2405; J2704; J3010; J7120

== ENCOUNTER 2024-11-15 15:18 | Outpatient (CLI) | payer OTHER, SELFPAY ==
--- NOTE | ~2024-11-15 | US_ITS ---
US soft tissue upper back 11/15/2024 15:38 Indication: Subcutaneous mass midline upper back Procedure: High-resolution real-time grayscale and color Doppler ultrasound Examination was performed Comparison: No prior studies for comparison. Findings: There is an oval hypoechoic encapsulated mass located in the upper back at the midline, mallory ented parallel to the skin surface measuring 2.4 x 2.3 x 0.8 cm. Margins well defined. No internal va scularity is demonstrated on color Doppler evaluation. No significant posterior acoustic features are identified. Overlying skin and surrounding soft tissues are unremarkable. Impression: 1: Well-defined encapsulated hypoechoic mass in the upper back without internal vascularity. Differen tial diagnosis includes epidermoid inclusion cyst, dermoid cyst, encapsulated lipoma and chronic orga nized hematoma. Clinical correlation for signs of inflammation or recent growth recommended. No immed iate further imaging needed if stable. Consider surgical excision if the patient is symptomatic. Reviewed, dictated and finalized at location A. Impression: 1: Well-defined encapsulated hypoechoic mass in the upper back without internal vascularity. Differential diagnosis includes epidermoid inclusion cyst, dermoi d cyst, encapsulated lipoma and chronic organized hematoma. Clinical correlatio n for signs of inflammation or recent growth recommended. No immediate further imaging needed if stable. Consider surgical excision if the patient is symptoma tic.
== END 2024-11-15 15:19 | disposition home or self-care (01) ==
PROVIDERS: PCP Physician Assistant; Visit Provider Physician Assistant
DX: R22.2 Localized swelling, mass and lump, trunk (principal)
CPT/HCPCS: 76604